=== PATIENT | female | born 1945 | race Caucasian/White ===

== ENCOUNTER → 2016-07-03 17:40 | Outpatient (CLI) | payer MEDICARE ==
[2012-01-12 10:42] VITALS: BMI 29.2
== END | disposition home or self-care (01) ==
LOC: D.MAMMO 06-07 16:00
DX: Z12.31 Encounter for screening mammogram for malignant neoplasm of breast (principal)

== ENCOUNTER → 2016-07-27 07:52 | Outpatient (CLI) | payer MEDICARE, OTHER ==
[2012-01-12 10:42] VITALS: BMI 29.2
== END | disposition home or self-care (01) ==
LOC: D.US 07-18 15:00
DX: R92.8 Other abnormal and inconclusive findings on diagnostic imaging of breast (principal)

== ENCOUNTER → 2016-11-16 10:09 | Outpatient (CLI) | payer MEDICARE, OTHER ==
[2012-01-12 10:42] VITALS: BMI 29.2
== END | disposition home or self-care (01) ==
LOC: D.US 10:00
DX: R92.8 Other abnormal and inconclusive findings on diagnostic imaging of breast (principal)

== ENCOUNTER → 2017-04-08 08:32 | Outpatient (CLI) | payer MEDICARE, OTHER ==
[2012-01-12 10:42] VITALS: BMI 29.2
== END | disposition home or self-care (01) ==
LOC: D.RAD 08:30
DX: R13.10 Dysphagia, unspecified (principal)

== ENCOUNTER → 2017-07-10 13:39 | Outpatient (CLI) | payer MEDICARE, OTHER ==
[2012-01-12 10:42] VITALS: BMI 29.2
== END | disposition home or self-care (01) ==
LOC: D.MAMMO 13:39
DX: Z12.31 Encounter for screening mammogram for malignant neoplasm of breast (principal)

== ENCOUNTER → 2018-08-12 23:59 | Outpatient (CLI) | payer MEDICARE, OTHER ==
[2012-01-12 10:42] VITALS: BMI 29.2
== END | disposition home or self-care (01) ==
LOC: D.MAMMO 15:30
PROVIDERS: ATTEND Family Medicine Adult Medicine
DX: Z12.31 Encounter for screening mammogram for malignant neoplasm of breast (principal)

== ENCOUNTER → 2019-07-06 10:19 | Outpatient (CLI) | payer MEDICARE, OTHER ==
[2012-01-12 10:42] VITALS: BMI 29.2
== END | disposition home or self-care (01) ==
LOC: D.HCCARDIO 10:19
PROVIDERS: ATTEND Internal Medicine Cardiovascular Disease
DX: I25.10 Atherosclerotic heart disease of native coronary artery without angina pectoris (principal)

== ENCOUNTER 2019-07-13 18:15 | Inpatient (IN) | payer MEDICARE, OTHER ==
[~2019-07-13] VITALS: Ht 170.2 cm; Wt 73.6 kg
--- NOTE | ~2019-07-13 | HEMODYNAMI ---
PATIENT:HEATHER KELLY MEDICAL RECORD: [id number] : 45 LOCATION:[facility] D.2121 ADMISSION DATE: 07/13/19 Generatedon:07/17/20198:31 Patient name: HEATHER KELLY Patient #: [id number] SSN: [id number] : 1945 Date of study: 07/17/2019 Page: Of Hemodynamic Procedure Report Patient Data Patient Demographics Procedure consent was obtained First Name: HEATHER Gender: Female Last Name: LETICIA : 1945 Patient #: [id number] Age: 74 year(s) Race: SSN: [id number] Additional ID: [id number] Contact details Address: [address] [place] [address] State: [place] City: [place] Zip code: [address] Past Medical History Allergies Allergen Reaction Date Comments Reported Other allergy 07/17/2019 ASPIRIN, CODEINE, IRON, MORPHINE, LEVINFLOXIN Admission Admission Data Admission Date: 07/13/2019 Admission Time: 20:42 Arrival Date: 07/17/2019 Arrival Time: 0:00 Admit Source: Other Insurance Payor: Medicare Room #: D.2121 [facility] #: [id number] Height (in.): 6700 BSA: 51.48 (m2) Height (cm.): 28804 BMI: 0 (kg/m2) Weight (lbs.): 157.41 Weight (kg.): 71.4 Lab Results Lab Result Date: 07/17/2019 Lab Result Time: 0:00 Biochemistry Name Units Result Min Max BUN mg/dl 14 --(--*-)-- 7 18 Creatinine mg/dl 0.9 --(-*--)-- 0.6 1.3 eGFR ml/min 64.13458 *-(----)-- 90 120 NONAFRICAN CBC Name Units Result Min Max Hematocrit % 34.9 *-(----)-- 42 54 Hemoglobin g/dl 11.4 *-(----)-- 13.5 17.5 Procedure Procedure Types Cath Procedure Diagnostic Procedure LHC Coronaries w/Grafts Sedation Charges Moderate Sedation up to 30 minutes PCI Procedure Coronary Stent Coronary Stent Initial Hemochron ACT Test Procedure Description Procedure Date Procedure Date: 07/17/2019 Procedure Start Time: 7:51 Procedure End Time: 8:29 Procedure Staff Name Function Bruce Vela MD Performing Physician Lissy Demarco RT Monitor Adriana Messina RT Scrub Bridget Nagel RN Nurse Indication Chest pain Procedure Data Cath Procedure Fluoroscopy Diagnostic fluoroscopy Total fluoroscopy Time: 7.8 time: 7.8 min min Diagnostic fluoroscopy Total fluoroscopy dose: 850 dose: 850 mGy mGy Contrast Material Contrast Material Type Amount (ml) Isovue 300 136 Entry Location Entry Primary Successful Side Size Upsize Upsize Entry Closure Succes sful Closure Location (Fr) 1 (Fr) 2 (Fr) Remarks Device Remarks Femoral Right 5 Fr 6 Fr Exoseal artery Short Estimated blood loss: 10 ml Diagnostic catheters Device Type Used For End Catheter Placement MULTIPACK JL 4.0 5Fr Left Coronary catheter Angiography MULTIPACK 3DRC 5Fr Right Coronary catheter Angiography DIAGNOSTIC IM 5Fr Procedure catheter ([id number]) Procedure Complications No complications Procedure Medications Medication Administration Route Dosage Oxygen etCO2 Nasal cannula 2 l/min Lidocaine 2% added to field 20 Heparin Flush Bag added to field 2 bags (1000units/500ml NS) 0.9% NaCl I.V. 100 ml/hr Zofran I.V. 4 mg Versed I.V. 1 mg Fentanyl I.V. 50 mcg Versed I.V. 1 mg Fentanyl I.V. 50 mcg Heparin Bolus I.V. 7000 units Versed I.V. 1 mg Plavix P.O. 600 mg Hemodynamics Rest BSA: 51.48 (m2) HGB: 11.4 (g/dl) O2 Consumption: Estimated: 4918.92 (ml/min) O2 Consumption indexed: Estimated:95.55 (ml/min/m) Heart Rate: 81 (bpm) Snapshots Pre Cath Intra NCS Post Cath Vital Signs Time Heart Resp SPO2 etCO2 NIBP (mmHg) Rhythm Pain Status Sedation Rate (ipm) (%) (mmHg) Level (bpm) 7:44:18 81 18 93 0 157/94(125) NSR 10 (11) , 10(A) Unimaginable unspeakable 7:48:34 83 15 92 10.5 147/86(112) NSR 10 (11) , 10(A) Unimaginable unspeakable 7:52:46 101 17 93 15 163/106(134) NSR 0 (11) , No 10(A) pain 7:57:00 105 15 94 19.5 174/101(130) NSR 0 (11) , No 9(A) pain 8:01:10 98 27 94 19.5 141/95(117) NSR 0 (11) , No 9(A) pain 8:05:20 101 21 94 28.6 144/96(120) NSR 0 (11) , No 9(A) pain 8:09:46 67 15 92 21 86/50(67) NSR 0 (11) , No 10(A) pain 8:14:43 67 22 93 18.8 108/60(83) NSR 0 (11) , No 9(A) pain 8:19:30 104 26 93 15.8 128/80(106) NSR 0 (11) , No 9(A) pain 8:23:38 101 30 94 21.8 139/87(120) NSR 0 (11) , No 10(A) pain 8:27:48 98 36 90 11.2 139/88(108) NSR 0 (11) , No 10(A) pain Medications Time Medication Route Dose Verified Delivered Reason Notes Effectiveness by by 7:43:26 Oxygen etCO2 2 Bruce Buffie used for Nasal l/min Dane Nagel RN procedure cannula 7:43:38 Lidocaine 2% added 20ml Bruce Bruce for local to vial Dane Vela MD anesthetic field 7:43:46 Heparin Flush added 2 Bruce Bruce used for Bag to bags Dane Vela MD procedure (1000units/500ml field NS) 7:43:54 0.9% NaCl I.V. 100 Bruce Buffie Per physician ml/hr Dane Nagel RN 7:44:04 Zofran I.V. 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 7:48:13 Versed I.V. 1 mg Bruce Buffie for sedation Dane Nagel RN 7:48:20 Fentanyl I.V. 50 Bruce Buffie for sedation mcg Dane Nagel RN 7:51:42 Versed I.V. 1 mg Bruce Buffie for sedation Dane Nagel RN 7:51:45 Fentanyl I.V. 50 Bruce Buffie for sedation mcg Dane Nagel RN 8:06:50 Heparin Bolus I.V. 7000 Bruce Buffie for verifi ed units Dane Nagel RN anticoagulation with dr vela 8:13:42 Versed I.V. 1 mg Bruce Buffie for sedation Dane Nagel RN 8:25:59 Plavix P.O. 600 Bruce Buffie for mg Dane Nagel RN antiplatelet therapy Procedure Log Time Note 7:13:38 Informed consent obtained and on chart 7:15:32 Stress Test: yes; abnormal anterior wall 7:15:37 Risk of Mortality: 0.1 7:15:40 Risk of blood transfusion: 1.2 7:15:44 Risk of JERARDO: 1.8 7:15:47 Alarms reviewed by R. N. 7:15:48 Sharps counted by scrub and verified by R.N. 7:15:56 Diagnostic Cath Status : Urgent 7:16:20 Indication : Chest pain 7:16:32 Procedure Status Urgent Heart Cath (IP). 7:16:35 Bridget Nagel RN sent for patient. Start room use. 7:16:44 Time tracking: Regular hours (M-F 7:00 - 5:00) 7:16:49 Plan of Care:Hemodynamics will remain stable., Cardiac rhythm will remain stable., Comfort level will be maintained., Respiratory function will remain adequate., Patient/ family verbilizes understanding of procedure., Procedure tolerated without complication., Recovers from procedure without complications.. 7:16:56 Admit Source: Other 7:17:10 H&P Date Dictated: 07/13/2019 Within 30 days and on chart.. 7:17:11 Pre-procedure instructions explained to patient. 7:17:12 Pre-op teaching completed and patient verbalized understanding. 7:17:17 Patient NPO since Midnight. 7:17:56 Patient allergic to Other allergyASPIRIN, CODEINE, IRON, MORPHINE, LEVINFLOXIN 7:18:01 Is the patient allergic to Iodine/contrast media? No. 7:18:39 Lab Result : BUN 14 mg/dl 7:18:39 Lab Result : Creatinine 0.9 mg/dl 7:18:39 Lab Result : eGFR NONAFRICAN 64.31829 ml/min 7:18:39 Lab Result : Hemoglobin 11.4 g/dl 7:18:39 Lab Result : Hematocrit 34.9 % 7:18:46 Is patient on blood thinner?Yes 7:18:51 ACC The patient was administered the following blood thiners within the last 24 hours: Coumadin 7:18:59 Patient diabetic? No. 7:19:01 If diabetic: On Metformin? N/A 7:19:05 Was the patient premedicated? Yes 7:21:53 Arrival Date: 07/17/2019 12:00:00 AM 7:21:57 Patient Height : 6700 inches 7:22:01 Patient Weight : 157.41 lbs 7:22:16 Insurance Payor : Medicare 7:38:56 Patient received from Med II to CCL 1 Alert and oriented. Tansferred to table in Supine position. 7:43:17 Vital chart was started 7:43:26 Oxygen 2 l/min etCO2 Nasal cannula was administered by Bridget Nagel RN; used for procedure; Verbal order read back and verified. 7:43:38 Lidocaine 2% 20ml vial added to field was administered by Bruce Vela MD; for local anesthetic; Verbal order read back and verified. 7:43:46 Heparin Flush Bag (1000units/500ml NS) 2 bags added to field was administered by Bruce Vela MD; used for procedure; Verbal order read back and verified. 7:43:54 0.9% NaCl 100 ml/hr I.V. was administered by Bridget Nagel RN; Per physician; Verbal order read back and verified. 7:44:04 Zofran 4 mg I.V. 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 Verbal order read back and verified. 7:44:18 Warm blankets applied, and chad hugger turned on for patient comfort. 7:44:19 Correct patient and procedure confirmed by team. 7:44:20 ECG and BP/O2 sat monitors applied to patient. 7:44:21 Baseline sample Acquired. 7:44:29 Rhythm: sinus rhythm 7:44:34 Full Disclosure recording started 7:44:36 7:45:25 ----Pre-sedation anethsthesia assessment.---- 7:45:38 Previous problem with sedation/anesthesia? Yes DAYS TO RECOVER 7:45:42 Snore? Yes 7:45:44 Sleep apnea? No 7:45:47 Deviated septum? No 7:45:49 Opens mouth fully? Yes 7:45:52 Sticks out tongue? Yes 7:45:56 Airway obstruction? No ? 7:46:04 Dentures? No ? 7:46:18 Pre procedure: right dorsailis pedis pulse 2+ Normal; easily identifiable; not easily obliterated 7:46:29 Patient pain scale 10/10 CHEST. 7:47:32 IV [facility] with a 22 gauge IV catheter with 0.9% NaCl at KVO. 7:47:39 Lab results completed and on chart. 7:47:44 Right groin area was prepped with chlora-prep and draped in sterile fashion 7:47:48 Physician arrived 7:47:49 --------ALL STOP TIME OUT------ 7:47:49 Final Timeout: patient, procedure, and site verified with staff and physician. All members of the team are in agreement. 7:47:52 Right groin site verified by team. 7:47:59 Fire Safety Assessment: A--An alcohol-based skin anteseptic being used preoperatively., C--Open oxygen or nitrous oxide is being used., D--An ESU, laser, or fiber-optic light is being used. 7:48:08 Physical assessment completed. ASA score P 2 - A patient with mild systemic disease as per Bruce Vela MD. 7:48:13 Versed 1 mg I.V. was administered by Bridget Nagel RN; for sedation; Verbal order read back and verified. 7:48:16 2) 60-89 Mildly reduced kidney function, and other findings (as for stage 1) point to kidney disease. 7:48:20 Fentanyl 50 mcg I.V. was administered by Bridget Nagel RN; for sedation; Verbal order read back and verified. 7:48:23 Maximum allowable contrast dose (3.7 X eGFR X 0.75)180 ml. 7:48:30 Sedation plan: IV Moderate Sedation Medication:Versed, Fentanyl 7:48:36 Use device set Femoral Dx 7:48:38 ACIST Syringe (49750) opened to sterile field. 7:48:39 Bag Decanter (2002S) opened to sterile field. 7:48:40 Medline Cath Pack ([id number]) opened to sterile field. 7:48:41 ACIST Hand Control (93293) opened to sterile field. 7:48:42 ACIST Manifold (79374) opened to sterile field. 7:48:43 DIAGNOSTIC Multipack 5Fr catheter set (HX1822) opened to sterile field. 7:48:44 Tegaderm 4 x 4 (1626W) opened to sterile field. 7:48:46 SHEATH 5FR [place] (DSL486) opened to sterile field. 7:48:47 EMERALD Guide Wire (274-367) opened to sterile field. 7:48:56 Procedure started. 7:51:00 Local anesthetic to right femoral artery with Lidocaine 2% by Bruce Vela MD.INITIAL ACCESS ONLY 7:51:16 A 5 Fr sheath was inserted into the Right Femoral artery 7:51:42 Versed 1 mg I.V. was administered by Bridget Nagel RN; for sedation; Verbal order read back and verified. 7:51:45 Fentanyl 50 mcg I.V. was administered by Bridget Nagel RN; for sedation; Verbal order read back and verified. 7:52:04 A MULTIPACK JL 4.0 5Fr catheter was advanced over the wire and used for Left Coronary Angiography. 7:52:58 LCA angiography performed. 7:53:03 Injector settings: Ml/sec: 3, Volume: 6, 7:54:29 Zero performed for pressure channel P1 7:54:42 Zero performed for pressure channel P1 7:54:51 Zero performed for pressure channel P1 7:55:01 Catheter removed. 7:55:15 A MULTIPACK 3DRC 5Fr catheter was advanced over the wire and used for Right Coronary Angiography. 7:55:56 RCA angiography performed. 7:56:27 Injector settings: Ml/sec: 3, Volume: 6, 7:56:31 SVG TO RIGHT CLOSED. 7:57:27 SVG OCCLUDED. 7:57:37 Catheter removed. 7:58:39 A DIAGNOSTIC IM 5Fr catheter (002922C) was advanced over the wire and used for Procedure. 7:59:56 SCHMITT to LAD angiography performed. 8:02:29 Catheter removed. 8:02:57 Use device set VELA PCI 8:04:09 Proceeding to intervention. 8:04:22 INFLATOR Merit BasixCompak (DP4389) opened to sterile field. 8:04:35 SHEATH 6FR [place] (REX115) opened to sterile field. 8:05:18 GUIDE 6FR XBLAD 3.5 SH catheter ([id number]) opened to sterile field. 8:06:04 Sheath upsized to a 6 Fr Short. 8:06:25 6 Fr XBLAD3.5 SH guide catheter was inserted over the wire 8:06:35 BMW 300cm [place] 2 J wire ([id number]) opened to sterile field. 8:06:45 BMW WIRE wire advanced. 8:06:50 Heparin Bolus 7000 units I.V. was administered by Bridget Nagel RN; for anticoagulation; verified with dr vela Verbal order read back and verified. 8:08:14 Pre PCI Site: [place] mCirc has 90% stenosis. 8:08:42 ACC Pre-intervention KAY Flow is 3. 8:08:47 Wire advanced across lesion. 8:10:42 Inflate balloon Inflation number: 2 A EMERGE OTW 2.5 x 15 balloon ([id number]) was prepped and advanced across the Mid CX , then inflated to 12 MCKAY for 0:00 (min:sec) . 8:11:28 Balloon removed over the wire. 8:13:42 Versed 1 mg I.V. was administered by Bridget Nagel RN; for sedation; Verbal order read back and verified. 8:15:40 Place stent Inflation Number: 1 A COBRA RX 2.5 X 18 Stent was prepped and advanced across the Mid CX . The stent was deployed at 16 MCKAY for 0:00 (min:sec) . 8:16:35 Stent catheter was removed intact over wire. 8:18:48 Wire removed. 8:18:50 Guide catheter removed. 8:19:07 Post PCI Site: [place] mCirc has 0% stenosis. 8:19:47 ACC Post-intervention KAY Flow is 3. 8:19:55 EXOSEAL 6Fr (EX600) opened to sterile field. 8:20:06 ACT drawn and resulted at ? seconds. (normal therapeutic range 180-240 seconds). 8:20:41 Sheath removed intact; hemostasis achieved with Exoseal to the Right Femoral artery. 8:20:48 Procedure ended.(Physican Out) 8:20:56 Contrast amount:Isovue 300 136ml. 8:21:10 Maximum allowable dose exceeded? No. 8:21:46 Fluoroscopy time 07.80 minutes. 8:21:57 Flurop Dose total: 850 8:21:57 Fluoroscopy dose: 850 mGy 8:22:09 Dose Area Product 45389 mGy/cm. 8:22:11 Sharps counted by scrub and verified by R.N. 8:22:16 Insertion/operative site no bleeding no hematoma. 8:22:23 Post-op/insertion site Right Femoral artery dressed using a 4 x 4 and Tegaderm. 8:22:28 Post right femoral artery:stable 8:22:32 Post Procedure Pulses reassessed and unchanged 8:22:37 Post-procedure physical assessment completed. ASA score P 2 - A patient with mild systemic disease as per Bruce Vela MD. 8:23:08 Post procedure rhythm: sinus tachycardia 8:24:13 Estimated blood loss: 10 ml 8:24:15 Post procedure instruction explained to patient.Patient verbalizes understanding. 8:24:17 Patient needs reinforcement of post procedure teaching. 8:25:34 Procedure type changed to Cath procedure, Diagnostic procedure, LHC, Coronaries w/Grafts, Sedation Charges, Moderate Sedation up to 30 minutes, PCI procedure, Coronary Stent, Coronary Stent Initial, Hemochron ACT Test 8:25:36 Procedure and supply charges have been captured, reviewed, submitted and are correct. 8:25:59 Plavix 600 mg P.O. was administered by Bridget Ngael RN; for antiplatelet therapy; Verbal order read back and verified. 8:27:08 ACT drawn and resulted at 327 seconds. (normal therapeutic range 180-240 seconds). 8:29:19 Procedure Complication : No complications 8:29:22 Vital chart was stopped 8:29:25 [facility] Findings: MVD- PCI performed (see procedure note) 8:29:29 Operative report dictated upon procedure completion. 8:29:30 See physician's report for complete and final results. 8:29:33 Report given to [facility] II. 8:29:38 Patient transfered to [facility] with Bed. 8:29:41 Procedure ended. 8:29:41 Full Disclosure recording stopped 8:29:45 End room use (Document Last) Intervention Summary Intervention Notes Time ActionType Lesion and Equipment Action# Pressure Duration Attributes Used 8:10:42 Inflate Mid CX EMERGE OTW 2 12 00:00 balloon 2.5 x 15 balloon ([id number]) 8:15:40 Place stent Mid CX COBRA RX 2.5 1 16 00:00 X 18 Stent Device Usage Item Name Manufacture Quantity Catalog Number [facility] Minimal Lot# / Charge Number Stock Stock Serial# Code ACIST Syringe Acist 1 49962 370082 004283 530405 20 (03791) Medical Systems Inc Bag Decanter Microtek 1 2001S 879806 99201 599891 5 (2001S) Medical Inc. Medline Cath Medline 1 [id number] 794664 13922 621834 5 Pack ([id number]) ACIST Hand Acist 1 75347 503208 344494 659548 5 Control Medical (48682) Systems Inc ACIST Manifold Acist 1 52494 466079 089244 708980 5 (52427) Medical Systems Inc DIAGNOSTIC Cardinal 1 IV2702 819406 61378 413719 30 Multipack 5Fr [place] catheter set (AT9538) Tegaderm 4 x 4 3M 1 1626W 440826 081557 054930 5 (1626W) SHEATH 5FR Terumo 1 PCB992 020073 861835 376221 5 [place] (POS972) EMERALD Guide Cardinal 1 502-455 278489 987744 941989 5 Wire (502-455) Health MULTIPACK JL Cardinal 1 464000 5 4.0 5Fr Health catheter MULTIPACK 3DRC Cardinal 1 425221 5 5Fr catheter Health DIAGNOSTIC IM Cardinal 1 [id number] 120633 541195 819299 5 5Fr catheter [place] (458563Y) INFLATOR Merit Merit 1 HO7885 849159 492405 685930 15 BasixSan [facility] HospitalElectric Objects Medical (HO3398) SHEATH 6FR Terumo 1 NTE895 807472 295210 133833 40 [place] (HAW849) GUIDE 6FR Cardinal 1 64917779 414665 846876 008393 3 XBLAD 3.5 SH Health catheter (61991032) BMW 300cm [place] 1 [id number] 366482 782967 586452 5 [place] 2 J Vascular wire (7567159D) EMERGE OTW 2.5 [place] 1 [id number] 312388 106131 232120 5 [id number] x 15 balloon Scientific ([id number]) COBRA RX 2.5 X Celonova 1 145-76-77686 005746 [id number] 661869 83 3 [id number] 18 stent Biosciences ([id number]) EXOSEAL 6Fr Cardinal 1 EX600 830752 617487 500556 10 (EX600) Health Signature Audit [place] Stage Time Signature Unsigned Intra-Procedure 07/17/2019 Lissy 8:30:27 AM Dav RT(R) (CV) Intra-Procedure 07/17/2019 Bridget Nagel RN 8:30:58 AM Intra-Procedure 07/17/2019 Bruce Vela MD 8:31:45 AM [place] [address] [id number] [place] [id number]
[2019-07-13 19:16] LABS: BASOPHILS 0.4 % (0-2); EOSINOPHILS 2.7 % (0-7); IMMATURE GRANULOCYTES 0.3 % (0-5); LYMPHOCYTES 32.9 % (15-50); MCH 31.1 pg (26.0-34.0); MCHC 34.1 g/dL (31.0-37.0); MCV 91.1 fL (80.0-100.0); MEAN PLATELET VOLUME 11.9 fL (7.4-10.4); MONOCYTES 8.4 % (2-11); NEUTROPHILS 55.3 % (40-80); PLATELET COUNT 286 10x3/uL (130-400); RBC 4.83 10x6/uL (4.00-5.40); RDW 13.4 % (11.5-14.5); WBC 9.6 10x3/uL (4.8-10.8)
[2019-07-13 19:26] VITALS: BP 184/76
[2019-07-13 19:28] LABS: CALC OSMOLALITY 279 mosm/kg (275-300); CALCIUM 8.9 mg/dL (8.5-10.1); CARBON DIOXIDE 28.3 mmol/L (21.0-32.0); CHLORIDE - SERUM 101 mmol/L (98-107); CREATININE - SERUM 1.1 mg/dL (0.6-1.3); GLUCOSE 93 mg/dL (74-106); POTASSIUM - SERUM 3.5 mmol/L (3.5-5.1); SODIUM 139 mmol/L (136-145); UREA NITROGEN 17 mg/dL (7-18); eGFR NON AFRICAN AMERICAN 51 mL/min (90-120)
[2019-07-13 19:30] LABS: APTT 52.8 SECONDS (22.8-39.4); INR 2.8 (0.85-1.17)
[2019-07-13 19:44] LABS: ALBUMIN 4.2 g/dL (3.4-5.0); ALKALINE PHOSPHATASE 110 U/L (30-120); ALT (SGPT) 23 U/L (10-68); BILIRUBIN - TOTAL 0.38 mg/dL (0.2-1.3); CKMB 2.4 U/L (0.0-3.6); CREATINE KINASE 132 UL (21-215); MAGNESIUM - SERUM 1.8 mg/dL (1.8-2.4); PROTEIN - SERUM 7.9 g/dL (6.4-8.2); TROPONIN-I 0.056 ng/mL (0.000-0.060)
[2019-07-13 20:20] VITALS: BP 178/56
--- NOTE | 2019-07-13 21:58 | NUR ---
REPORT CALLED TO [facility]OLO ON MED II. PATIENT WILL TRANSFER WITH [facility] INFUSING
--- NOTE | 2019-07-13 22:15 | NUR ---
RECEIVED FROM ER, PT IS A&O X4, HISTORY AND MEDS REVIEWED, DENIES ANY NEEDS, BED IS LOW, SRX2, CALL LIGHT IN REACH, WILL CONTINUE PLAN OF CARE
[2019-07-13] MEDS ORDERED: NITROQUICK0.4 MG SL (22:16)
[2019-07-13] MEDS ORDERED: COUMADIN3 MG PO (22:17)
[2019-07-13] MEDS ORDERED: COUMADIN2 MG PO (22:18)
[2019-07-14] VITALS (7 sets, daily range): BP systolic 121–144; BP diastolic 59–74; BMI 23.2
[2019-07-14 02:47] LABS: BASOPHILS 0.3 % (0-2); EOSINOPHILS 3.3 % (0-7); HEMATOCRIT 40.9 % (36.0-48.0); HEMOGLOBIN 13.3 g/dL (12-16); IMMATURE GRANULOCYTES 0.3 % (0-5); MCH 30.1 pg (26.0-34.0); MCHC 32.5 g/dL (31.0-37.0); MCV 92.5 fL (80.0-100.0); MEAN PLATELET VOLUME 11.5 fL (7.4-10.4); MONOCYTES 7.2 % (2-11); NEUTROPHILS 62.9 % (40-80); PLATELET COUNT 248 10x3/uL (130-400); RBC 4.42 10x6/uL (4.00-5.40); RDW 13.4 % (11.5-14.5); WBC 9.5 10x3/uL (4.8-10.8)
[2019-07-14 03:23] LABS: ALBUMIN 3.5 g/dL (3.4-5.0); ALKALINE PHOSPHATASE 82 U/L (30-120); ALT (SGPT) 18 U/L (10-68); BILIRUBIN - TOTAL 0.55 mg/dL (0.2-1.3); CALC OSMOLALITY 285 mosm/kg (275-300); CALCIUM 8.4 mg/dL (8.5-10.1); CARBON DIOXIDE 29.8 mmol/L (21.0-32.0); CHLORIDE - SERUM 106 mmol/L (98-107); CKMB 6.9 U/L (0.0-3.6); CREATINE KINASE 126 UL (21-215); CREATININE - SERUM 0.9 mg/dL (0.6-1.3); GLUCOSE 95 mg/dL (74-106); MAGNESIUM - SERUM 1.8 mg/dL (1.8-2.4); PHOSPHOROUS 3.6 mg/dL (2.5-4.9); PRO BNP 3043 pg/mL (0-125); SODIUM 143 mmol/L (136-145); UREA NITROGEN 16 mg/dL (7-18); eGFR NON AFRICAN AMERICAN 65 mL/min (90-120)
[2019-07-14 03:27] LABS: POTASSIUM - SERUM 4.1 mmol/L (3.5-5.1)
[2019-07-14 03:30] LABS: TROPONIN-I 0.663 ng/mL (0.000-0.060)
[2019-07-14 03:52] LABS: APTT 60.5 SECONDS (22.8-39.4); INR 3.2 (0.85-1.17); PROTIME 32.1 SECONDS (11.6-15.0)
[2019-07-14 04:28] LABS: APPEARANCE CLEAR (CLEAR); BILIRUBIN NEGATIVE (NEGATIVE); COLOR YELLOW (YELLOW); GLUCOSE NEGATIVE (NEGATIVE); KETONE NEGATIVE (NEGATIVE); NITRITE NEGATIVE (NEGATIVE); PROTEIN NEGATIVE (NEGATIVE); UROBILINOGEN NORMAL (NORMAL)
[2019-07-14 04:30] LABS: BACTERIA FEW /hpf (NEGATIVE); EPITHELIAL CELLS 0-5 /hpf (0-5); RED CELLS - URINE 0-5 /hpf (0-5); WHITE CELLS - URINE 0-5 /hpf (NEGATIVE)
--- NOTE | 2019-07-14 08:28 | NUR ---
AM MEDS GIVEN AT THIS TIME. PT RESTING COMFORTABLY IN BED, DENIES ANY NEEDS AT THIS TIME. CALL LIGHT REACH, NAD NOTED, WILL CONTINUE TO MONITOR.
[2019-07-14 08:47] LABS: CKMB 5.5 U/L (0.0-3.6); CREATINE KINASE 116 UL (21-215)
[2019-07-14 08:52] LABS: TROPONIN-I 0.724 ng/mL (0.000-0.060)
--- NOTE | 2019-07-14 10:08 | NUR ---
NORCO GIVEN FOR PAIN LEVEL OF 6/10.
--- NOTE | 2019-07-14 14:35 | NUR ---
PT RESTING COMFORTABLY IN BED, DENIES ANY NEEDS AT THIS TIME. CALL LIGHT IN REACH, NAD NOTED, WILL CONTINUE TO MONITOR.
[2019-07-14 15:08] LABS: CREATINE KINASE 106 UL (21-215)
[2019-07-14 17:23] LABS: CKMB 1.6 U/L (0.0-3.6); CREATINE KINASE 33 UL (21-215)
[2019-07-14 17:28] LABS: TROPONIN-I 0.156 ng/mL (0.000-0.060)
--- NOTE | 2019-07-14 19:20 | NUR ---
ASSESSMENT COMPLETE, PT A&O. RESPERATIONS EVEN ON RA. IV TO LEFT ARM SL, SITE CLEAN AND DRY. PT DENIES PAIN OR NEEDS AT THIS TIME, BED LOW, CL IN REACH. FAMILY AT BED SIDE.
--- NOTE | 2019-07-14 20:44 | NUR ---
HS MEDS GIVEN WITH FRESH ICE WATER. PT DENIES PAIN OR NEEDS. HEATER/AIR UNIT ADJUSTED AT PTS REQUEST.
[2019-07-14 23:47] LABS: CKMB 2.1 U/L (0.0-3.6); CREATINE KINASE 107 UL (21-215); TROPONIN-I 0.334 ng/mL (0.000-0.060)
[2019-07-15 00:21] VITALS: BP 180/79
--- NOTE | 2019-07-15 01:14 | NUR ---
I have reviewed this patient and I concur with the Shift Assessment completed by the Licensed Practical Nurse today this shift.
--- NOTE | 2019-07-15 02:00 | NUR ---
RESTING WITH EYES CLOSED, RESPERATIONS EVEN, NO S/S DISTRESS NOTED.
[2019-07-15 04:00] VITALS: BP 154/66
[2019-07-15 04:59] LABS: BASOPHILS 0.2 % (0-2); EOSINOPHILS 3.3 % (0-7); HEMATOCRIT 40.5 % (36.0-48.0); HEMOGLOBIN 13.3 g/dL (12-16); IMMATURE GRANULOCYTES 0.3 % (0-5); LYMPHOCYTES 32.4 % (15-50); MCH 30.4 pg (26.0-34.0); MCHC 32.8 g/dL (31.0-37.0); MCV 92.5 fL (80.0-100.0); MEAN PLATELET VOLUME 11.9 fL (7.4-10.4); MONOCYTES 8.1 % (2-11); NEUTROPHILS 55.7 % (40-80); PLATELET COUNT 264 10x3/uL (130-400); RBC 4.38 10x6/uL (4.00-5.40); RDW 13.4 % (11.5-14.5); WBC 9.3 10x3/uL (4.8-10.8)
[2019-07-15 05:28] LABS: INR 2.96 (0.85-1.17); PROTIME 30.3 SECONDS (11.6-15.0)
[2019-07-15 05:47] LABS: CALC OSMOLALITY 278 mosm/kg (275-300); CALCIUM 8.1 mg/dL (8.5-10.1); CARBON DIOXIDE 27.4 mmol/L (21.0-32.0); CHLORIDE - SERUM 105 mmol/L (98-107); CKMB 2.2 U/L (0.0-3.6); CREATINE KINASE 96 UL (21-215); GLUCOSE 104 mg/dL (74-106); POTASSIUM - SERUM 4.2 mmol/L (3.5-5.1); SODIUM 139 mmol/L (136-145); UREA NITROGEN 15 mg/dL (7-18); eGFR NON AFRICAN AMERICAN 57 mL/min (90-120)
[2019-07-15 05:51] LABS: TROPONIN-I 0.235 ng/mL (0.000-0.060)
[2019-07-15 08:00] VITALS: BP 150/72
--- NOTE | 2019-07-15 08:31 | NUR ---
AM MEDS GIVEN AT THIS TIME. PT RESTING COMFORTABLY IN BED. A/O X4, RESP EVEN AND NONLABORED ON RA. PT DENIES ANY PAIN AT THIS TIME. LT AC IV SL. CALL LIGHT IN REACH, NAD NOTED,W ILL CONTINUE TO MONITOR.
[2019-07-15 12:00] VITALS: BP 162/62
--- NOTE | 2019-07-15 12:01 | NUR ---
PT RESTING COMFORTABLY IN BED, DENIES ANY NEEDS AT THIS TIME. CALL LIGHT IN REACH, FAMILY AT BEDSIDE, NAD NOTED, WILL CONTINUE TO MONITOR.
--- NOTE | 2019-07-15 15:32 | NUR ---
PER DR. GIRARD, GIVE ONE TIME DOSE OF 5MG PO OF VITAMIN K.
--- NOTE | 2019-07-15 15:47 | NUR ---
PT C/O OF CHEST PAIN, NO CHANGES ON HEART MONITOR. PT RUNNING SR WITH RATE OF 82. 1 NITRO GIVEN AT THIS TIME. CASHIER IN ROOM TALKING TO PT.
--- NOTE | 2019-07-15 15:59 | NUR ---
CHEST PAIN RELIEVED BY 1 NITRO.
[2019-07-15 16:00] VITALS: BP 168/76
--- NOTE | 2019-07-15 16:15 | MORECARE ---
CASE MANAGEMENT DISCHARGE SUMMARY PATIENT: HEATHER KELLY UNIT: [id number] ADM DATE: 07/13/19 AGE: 74 : 45 SEX: F ROOM/BED: D.2121 AUTHOR: JESSICA,DOC PHYSICIAN: REFERRING PHYSICIAN: CEDRICK GIRARD MD DATE OF SERVICE: 07/15/19 Discharge Plan Patient Name: HEATHER KELLY Facility: [facility]:[place] : 1945 Planned Disposition: Home Anticipated Discharge Date: Discharge Date: Expected LOS: Initial Reviewer: [email or web address] Initial Review Date: 07/15/2019 Generated: 07/15/19 5:14 pm Comments DCP- Discharge Planning Updated by [email or web address]: Danny Andrade on 07/15/19 3:[address] Patient Name: HEATHER KELLY Admission Status: ER Accout number: [id number] Admission Date: 07-13-2019 : 1945 Admission Diagnosis: Attending: CEDRICK GIRARD Current LOS: 2 Anticipated DC Date: Planned Disposition: Home Primary Insurance: MEDICARE A & B Discharge Planning Comments: CM MET WITH PT IN ROOM TO DISCUSS DISCHARGE PLANNING AND NEEDS. PT REPORTS LIVING AT HOME INDEPENDENTLY WITH HEHER SISTER IN LAW. 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 PT HAS NO MEDICAL EQUIPMENT AND NO OUTSIDE SERVICES ASSISTING IN THE HOME. CM DISCUSSED AVAILABILITY OF HOME HEALTH, REHAB SERVICES AND MEDICAL EQUIPMENT. PT DENIES DISCHARGE NEEDS, REPORTS HER FAMILY OR FRIEND WILL PICK HER UP FOR DISCHARGE HOME. IMPORTANT MESSAGE FROM MEDICARE PROVIDED AND EXPLAINED. PT PLANS TO DISCHARGE HOME WITH FAMILY AND HAS NO ANTICIPATED DISCHARGE NEEDS. FAMILY OR FRIEND TO TRANSPORT AT DISCHARGE. CM TO FOLLOW AND ASSIST NEEDED. Real Estate Subagent: Danny Andrade DCPIA - Discharge Planning Initial Assessment Updated by [email or web address]: Danny Andrade on 07/15/19 4:10 pm * Is the patient Alert and Oriented? Yes * How many steps to enter\exit or inside your home? * PCP DR. NUNEZ * Pharmacy [facility] * Preadmission Environment Home with Family * ADLs Independent * Equipment None * Other Equipment NO MEDICAL EQUIPMENT PROVIDER PREFERENCE * List name and contact numbers for known caregivers / representatives who currently or will assist patient after discharge: JASE FERRERA, FRIEND, MICK CARVAJAL, SISTER IN LAW, * Verbal permission to speak to the caregivers and representatives has been obtained from the patient. N/A * Community resources currently utilized None * Please name any agencies selected above. NONE * Additional services required to return to the preadmission environment? No * Can the patient safely return to the preadmission environment? Yes * Has this patient been hospitalized within the prior 30 days at any hospital? No Coverage Notice Reviewer: [email or web address] Raj Andrade Notice Issued Date-Time: 07/15/2019 15:50 Notice Type: IM Discharge Notice Notice Delivered To: Patient Relationship to Patient: Right Of Way Clearer Name: Delivery Method: HAND - Hand Delivered Franca Days: Prior Verbal Notification: Recipient Understood Notice: Yes Recipient Signature: Yes Med Rec Note Co-signed by Attending: Coverage Notice Comment: Patient Name: HEATHER KELLY Page [phone] at 1615 All edits/amendments must be made on the electronic document DICTATION DATE: 07/15/191613 MATERIALS MGMT TECH: FIORELLA 07/15/19 161 RPT#: [id number] DC DATE: STATUS: ADM IN [facility] [address] [place] [address] END OF REPORT
[2019-07-15 20:00] VITALS: BP 131/57
[2019-07-16] VITALS: BP 141/64
[2019-07-16 04:00] VITALS: BP 177/85
--- NOTE | 2019-07-16 06:24 | NUR ---
I have reviewed this patient and I concur with the Shift Assessment completed by the Licensed Practical Nurse today this shift.
[2019-07-16 06:56] LABS: BASOPHILS 0.2 % (0-2); EOSINOPHILS 1.4 % (0-7); HEMATOCRIT 38.1 % (36.0-48.0); HEMOGLOBIN 12.5 g/dL (12-16); IMMATURE GRANULOCYTES 0.2 % (0-5); LYMPHOCYTES 10.8 % (15-50); MCH 30.3 pg (26.0-34.0); MCHC 32.8 g/dL (31.0-37.0); MCV 92.5 fL (80.0-100.0); MEAN PLATELET VOLUME 12.1 fL (7.4-10.4); MONOCYTES 7.6 % (2-11); NEUTROPHILS 79.8 % (40-80); PLATELET COUNT 244 10x3/uL (130-400); RBC 4.12 10x6/uL (4.00-5.40); RDW 13.5 % (11.5-14.5)
[2019-07-16 06:57] LABS: WBC 12.4 10x3/uL (4.8-10.8)
[2019-07-16 07:14] LABS: INR 2.16 (0.85-1.17); PROTIME 23.8 SECONDS (11.6-15.0)
[2019-07-16 07:32] LABS: ANION GAP 12.1 mmol/L (8-16); CALCIUM 8.4 mg/dL (8.5-10.1); CARBON DIOXIDE 25.8 mmol/L (21.0-32.0); CREATININE - SERUM 0.9 mg/dL (0.6-1.3); POTASSIUM - SERUM 3.9 mmol/L (3.5-5.1)
--- NOTE | 2019-07-16 07:38 | NUR ---
REPORT RECEIVED. WILL CONTINUE WITH POC. PT CURRENTLY LYING SEMI FOWLERS. CALL LIGHT W/I REACH. PT REQUESTING NITRO. PT IS AAO AND UP AD GENNY. RR EVEN AND UNLABORED ON 3L 02 L.AC PIV SALINE LOCKED. NO S/S OF DISTRESS NOTED. WILL CTM.
[2019-07-16 09:08] VITALS: BP 140/61
[2019-07-16 12:51] VITALS: BP 140/63
[2019-07-16 13:10] VITALS: Ht 170.2 cm; Wt 73.6 kg
[2019-07-16 16:40] VITALS: BP 137/59
--- NOTE | 2019-07-16 20:20 | NUR ---
EVENING ROUNDS COMPLETED. VSS, AAOX4, NO S/S OF RT DISTRESS. SPOUSE AT BEDSIDE. PT C/O CP NITRO 0.4 GIVEN. PT VOICED THANKS. PT DENIES ANY FURTHER NEEDS AT THIS TIME. WILL CPOC. CL WITHIN REACH.
[2019-07-16 20:30] VITALS: BP 125/59
[2019-07-17 00:45] VITALS: BP 115/60
[2019-07-17 04:48] VITALS: BP 119/53
[2019-07-17 06:36] LABS: BASOPHILS 0.2 % (0-2); EOSINOPHILS 2.3 % (0-7); HEMATOCRIT 34.9 % (36.0-48.0); HEMOGLOBIN 11.4 g/dL (12-16); IMMATURE GRANULOCYTES 0.2 % (0-5); MCH 30.3 pg (26.0-34.0); MCHC 32.7 g/dL (31.0-37.0); MCV 92.8 fL (80.0-100.0); MEAN PLATELET VOLUME 12.1 fL (7.4-10.4); MONOCYTES 7.3 % (2-11); PLATELET COUNT 220 10x3/uL (130-400); RBC 3.76 10x6/uL (4.00-5.40); RDW 13.4 % (11.5-14.5); WBC 10.3 10x3/uL (4.8-10.8)
[2019-07-17 07:03] LABS: INR 1.29 (0.85-1.17); PROTIME 15.9 SECONDS (11.6-15.0)
[2019-07-17 07:11] LABS: ANION GAP 14.8 mmol/L (8-16); CARBON DIOXIDE 26.3 mmol/L (21.0-32.0); CREATININE - SERUM 0.8 mg/dL (0.6-1.3); POTASSIUM - SERUM 4.1 mmol/L (3.5-5.1)
--- NOTE | 2019-07-17 07:27 | NUR ---
CONSENTS SIGNED. PREOP MEDICATIONS ADMININSTERED PER MANAGER PARK REQUEST. PT TRANSFERED TO MANAGER PARK. WILL CTM.
--- NOTE | 2019-07-17 08:53 | NUR ---
PT RETURNED FROM [facility]. RIGHT FEMORAL CATH SITE C/D/I WITH NO S/S OF HEMATOMA PRESENT. RR EVEN AND UNLABORED. NS INFUSING @100ML/HR VIA R.FOR PIV. WILL CTM.
[2019-07-17 13:18] VITALS: BP 132/86
[2019-07-17 17:12] VITALS: BP 163/83
--- NOTE | 2019-07-17 20:12 | NUR ---
REPORT RECIEVED AND INITIAL ROUNDS COMPLETED. O2 @ 3L/NC. RIGHT GROIN INCISION SITE C/D/I. PIV'S X 2, BOTH SALINE LOCKED. AT BEDSIDE. CALL LIGHT IN REACH. CPOC.
[2019-07-17 20:19] VITALS: BP 115/63
--- NOTE | 2019-07-17 20:56 | NUR ---
BEDTIME MEDS GIVEN. IV ABT UP AND INFUSING. SUPERVISED WHILE UP TO BATHROOM. GAIT STEADY. CPOC.
--- NOTE | 2019-07-17 23:30 | NUR ---
MEDICATED WITH 1 NITRO SL FOR CHEST PRESSURE THAT WAS IMPROVED WITHIN MINUTES OF TAKING THE MED. SR PER TELEMETRY.
[2019-07-18 00:21] VITALS: BP 104/63
--- NOTE | 2019-07-18 03:37 | NUR ---
RESTING IN BED WITH NO DISTRESS. CPOC.
[2019-07-18 05:29] VITALS: BP 118/59
[2019-07-18 06:24] LABS: BASOPHILS 0.2 % (0-2); EOSINOPHILS 2.1 % (0-7); HEMATOCRIT 36.1 % (36.0-48.0); HEMOGLOBIN 11.6 g/dL (12-16); IMMATURE GRANULOCYTES 0.2 % (0-5); LYMPHOCYTES 17.7 % (15-50); MCHC 32.1 g/dL (31.0-37.0); MCV 93.3 fL (80.0-100.0); MEAN PLATELET VOLUME 11.9 fL (7.4-10.4); MONOCYTES 7.8 % (2-11); PLATELET COUNT 248 10x3/uL (130-400); RBC 3.87 10x6/uL (4.00-5.40); RDW 13.3 % (11.5-14.5); WBC 10.5 10x3/uL (4.8-10.8)
[2019-07-18 06:52] LABS: CALCIUM 8.1 mg/dL (8.5-10.1); CARBON DIOXIDE 24.2 mmol/L (21.0-32.0); CREATININE - SERUM 0.9 mg/dL (0.6-1.3); POTASSIUM - SERUM 4.2 mmol/L (3.5-5.1)
[2019-07-18 06:55] LABS: INR 1.15 (0.85-1.17); PROTIME 14.6 SECONDS (11.6-15.0)
--- NOTE | 2019-07-18 07:00 | NUR ---
RECEIVED REPORT. ASSUMED CARE OF PATIENT. RESTING IN BED WITH EYES OPEN. PATIENT CONVERSING ABOUT IF SHE WILL GET TO GO HOME OR NOT, WONDERING THE STATUS OF HER INR THIS AM. DENIES NEEDS. NO DISTRESS. CALL LIGHT WITHIN REACH. SR, RATE 81 ON TELEMETRY.
[2019-07-18 09:15] VITALS: BP 105/61
--- NOTE | 2019-07-18 09:35 | NUR ---
OOB AMBULATING WITH PHYSICAL THERAPY AT THIS TIME. NO DISTRESS.
--- NOTE | 2019-07-18 12:00 | NUR ---
SITTING IN BED, PATIENT SPOUSE AT BEDSIDE. CALL LIGHT WITHIN REACH. NO DISTRESS. PATIENT DENIES ANY NEEDS.
[2019-07-18 12:06] VITALS: BP 126/62
--- NOTE | 2019-07-18 14:52 | NUR ---
SPOKE WITH ABOUT RESTARTING PATIENTS COUMADIN PER NOTE AND REVIEWED HER INR THAT WAS DRAWN THIS AM. NEW ORDERS RECEIVED FOR 10MG NOW AND IN AM. PATIENT HAS A MECHANICAL VALVE. PATIENT WILL D/C IN AM WHEN DR. JASSO MAKES HIS ROUNDS.
[2019-07-18 18:25] VITALS: BP 135/58
--- NOTE | 2019-07-18 19:47 | NUR ---
REPORT RECIEVED AND INITIAL ROUNDS COMPLETED. PT RESTING IN BED. NO DISTRESS. SR/79. LEFT A/C AND RFA PIV BOTH SALINE LOCKED. CALL LIGHT IN REACH. CPOC.
[2019-07-18 20:30] VITALS: BP 129/59
--- NOTE | 2019-07-18 21:31 | NUR ---
BEDTIME MEDS GIVEN. IV ABT UP AND INFUSING. PT TEACHING ON LUNESTA TO PROMOTE SLEEP. CALL LIGHT IN REACH.
[2019-07-19 04:30] VITALS: BP 112/64
[2019-07-19 05:55] LABS: BASOPHILS 0.2 % (0-2); EOSINOPHILS 3.7 % (0-7); HEMATOCRIT 34.6 % (36.0-48.0); HEMOGLOBIN 11.3 g/dL (12-16); IMMATURE GRANULOCYTES 0.2 % (0-5); LYMPHOCYTES 19.4 % (15-50); MCH 30.5 pg (26.0-34.0); MCHC 32.7 g/dL (31.0-37.0); MCV 93.3 fL (80.0-100.0); MEAN PLATELET VOLUME 11.7 fL (7.4-10.4); MONOCYTES 9.8 % (2-11); NEUTROPHILS 66.7 % (40-80); PLATELET COUNT 228 10x3/uL (130-400); RBC 3.71 10x6/uL (4.00-5.40); WBC 8.1 10x3/uL (4.8-10.8)
[2019-07-19 06:18] LABS: INR 1.56 (0.85-1.17); PROTIME 18.5 SECONDS (11.6-15.0)
[2019-07-19 06:24] LABS: ANION GAP 12.5 mmol/L (8-16); CARBON DIOXIDE 26.8 mmol/L (21.0-32.0); CREATININE - SERUM 0.8 mg/dL (0.6-1.3); POTASSIUM - SERUM 4.3 mmol/L (3.5-5.1)
--- NOTE | 2019-07-19 07:00 | NUR ---
RECEIVED REPORT. ASSUMED CARE OF PATIENT. CALL LIGHT WITHIN REACH. RESP EVEN AND UNLABORED. PATIENT RESTING WITH EYES CLOSED. MALE VISITOR AT BEDSIDE. NO DISTRESS. SR ON TELEMETRY, RATE 76.
[2019-07-19 09:32] VITALS: BP 118/55
[2019-07-19] MEDS ORDERED: ZITHROMAX250 MG PO (11:24)
[2019-07-19] MEDS ORDERED: PROTONIX40 MG PO (11:25)
--- NOTE | 2019-07-19 11:57 | NUR ---
20 GAUGE IV REMOVED FROM LEFT AC. CATHETER TIP INTACT. NO BLEEDING FROM SITE. 2X2 GAUZE APPLIED AND SECURED WITH BANDAID. 22 GAUGE IV REMOVED FROM RIGHT FOREARM. CATHETER TIP INTACT. NO BLEEDING FROM SITE. 2X2 GAUZE APPLIED AND SECURED WITH BANDAID. PATIENT TOLERATED IV REMOVAL WELL. PATIENT IS BEING DISCHARGED TO HOME.
[2019-07-19] MEDS ORDERED: PLAVIX75 MG PO (12:36)
--- NOTE | 2019-07-19 12:51 | NUR ---
CALLED DR ROMERO ARIZMENDI ASA FOR PT SHE IS ON COUMADIN AND PLAVIX. PER DR ROMERO KRISHNAMURTHY ASA @ DISCHARGE.
--- NOTE | 2019-07-19 13:15 | NUR ---
DISCHARGE INSTRUCTIONS PROVIDED TO PATIENT. PATIENT VERBALIZED UNDERSTANDING OF ALL INSTRUCTIONS PROVIDED.
--- NOTE | 2019-07-19 13:24 | NUR ---
PATIENT LEFT UNIT AT THIS TIME VIA WHEELCHAIR WITH ALL PERSONAL BELONGINGS. PATIENT IN NO DISTRESS UPON DISCHARGE. PATIENT PROVIDED WITH WRITTEN PRESCRIPTION FOR PLAVIX AND SHE STATES SHE WILL GET IT FILLED IN THE AM WHEN SHE PICKS UP HER OTHER PRESCRIPTIONS. NO DISTRESS UPON LEAVING UNIT.
--- NOTE | 2019-07-19 17:02 | MORECARE ---
CASE MANAGEMENT DISCHARGE SUMMARY PATIENT: HEATHER KELLY UNIT: [id number] ADM DATE: 07/13/19 AGE: 74 : 45 SEX: F ROOM/BED: D.4950 AUTHOR: JESSICA,DOC PHYSICIAN: REFERRING PHYSICIAN: CEDRICK GIRARD MD DATE OF SERVICE: 07/19/19 Discharge Plan Patient Name: HEATHER KELLY Facility: [facility]:[place] : 1945 Planned Disposition: Home Anticipated Discharge Date: Discharge Date: 07/19/2019 Expected LOS: Initial Reviewer: [email or web address] Initial Review Date: 07/15/2019 Generated: 07/19/19 6:01 pm Comments DCP- Discharge Planning Updated by [email or web address]: Jeannine Hanson on 07/19/19 3:[address] Patient Name: HEATHER KELLY Encounter No: [id number] : 1945 Primary Insurance: MEDICARE A & B Anticipated DC Date: Planned Disposition: Home External Planned Provider: : Ciara LIMON SIGNED 07/19/19 @1210 DCP follow-up note: Patient and family in agreement with discharge plan. No changes to plan. Case management will follow and assist as needed. Jeannine Hanson DCP- Discharge Planning Updated by [id number]: Danny Andrade on 07/15/19 3:[address] Patient Name: HEATHER KELLY Admission Status: ER Accout number: [id number] Admission Date: 07-13-2019 : 1945 Admission Diagnosis: Attending: CEDRICK GIRARD Current LOS: 2 Anticipated DC Date: Planned Disposition: Home Primary Insurance: MEDICARE A & B Discharge Planning Comments: CM MET WITH PT IN ROOM TO DISCUSS DISCHARGE PLANNING AND NEEDS. PT REPORTS LIVING AT HOME INDEPENDENTLY WITH HEHER SISTER IN LAW. 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 PT HAS NO MEDICAL EQUIPMENT AND NO OUTSIDE SERVICES ASSISTING IN THE HOME. CM DISCUSSED AVAILABILITY OF HOME HEALTH, REHAB SERVICES AND MEDICAL EQUIPMENT. PT DENIES DISCHARGE NEEDS, REPORTS HER FAMILY OR FRIEND WILL PICK HER UP FOR DISCHARGE HOME. IMPORTANT MESSAGE FROM MEDICARE PROVIDED AND EXPLAINED. PT PLANS TO DISCHARGE HOME WITH FAMILY AND HAS NO ANTICIPATED DISCHARGE NEEDS. FAMILY OR FRIEND TO TRANSPORT AT DISCHARGE. CM TO FOLLOW AND ASSIST NEEDED. Garage Mechanic: Danny Raymond DCPIA - Discharge Planning Initial Assessment Updated by [id number]: Danny Andrade on 07/15/19 4:10 pm * Is the patient Alert and Oriented? Yes * How many steps to enter\exit or inside your home? * PCP DR. NUNEZ * Pharmacy [facility] * Preadmission Environment Home with Family * ADLs Independent * Equipment None * Other Equipment NO MEDICAL EQUIPMENT PROVIDER PREFERENCE * List name and contact numbers for known caregivers / representatives who currently or will assist patient after discharge: JASE FERRERA, FRIEND, MICK CARVAJAL, SISTER IN LAW, * Verbal permission to speak to the caregivers and representatives has been obtained from the patient. N/A * Community resources currently utilized None * Please name any agencies selected above. NONE * Additional services required to return to the preadmission environment? No * Can the patient safely return to the preadmission environment? Yes * Has this patient been hospitalized within the prior 30 days at any hospital? No Coverage Notice Reviewer: [id number] - Danny Andrade Notice Issued Date-Time: 07/15/2019 15:50 Notice Type: IM Discharge Notice Notice Delivered To: Patient Relationship to Patient: Customer Service Advocate Name: Delivery Method: HAND - Hand Delivered Franca Days: Prior Verbal Notification: Recipient Understood Notice: Yes Recipient Signature: Yes Med Rec Note Co-signed by Attending: Coverage Notice Comment: Reviewer: [email or web address] Raj Hanson Notice Issued Date-Time: 07/19/2019 12:10 Notice Type: IM Discharge Notice Notice Delivered To: Patient Relationship to Patient: Self Customer Service Advocate Name: Delivery Method: HAND - Hand Delivered Franca Days: Prior Verbal Notification: Recipient Understood Notice: Yes Recipient Signature: Yes Med Rec Note Co-signed by Attending: Coverage Notice Comment: Last DP export: 07/15/19 3:15 p Patient Name: HEATHER KELLY Page [id number] at 1702 All edits/amendments must be made on the electronic document DICTATION DATE: 07/19/191700 CERTIFIED ALCOHOL COUNSELOR: FIORELLA 07/19/19 170 RPT#: [id number] DC DATE:07/19/19 STATUS: DIS IN [facility] [address] [place] [address] END OF REPORT
== END 2019-07-19 13:45 | disposition home or self-care (01) | DRG 248 ==
LOC: D.ER 18:15 → D.M2 20:42
PROVIDERS: Family Medicine; Internal Medicine Cardiovascular Disease; ADMIT Internal Medicine Nephrology; ATTEND Internal Medicine Nephrology
PROC: B2111ZZ Fluoroscopy of Multiple Coronary Arteries using Low Osmolar Contrast (ICD-10-PCS; 2019-07-17)
PROC: B2151ZZ Fluoroscopy of Left Heart using Low Osmolar Contrast (ICD-10-PCS; 2019-07-17)
PROC: B2121ZZ Fluoroscopy of Single Coronary Artery Bypass Graft using Low Osmolar Contrast (ICD-10-PCS; 2019-07-17)
PROC: B2181ZZ Fluoroscopy of Left Internal Mammary Bypass Graft using Low Osmolar Contrast (ICD-10-PCS; 2019-07-17)
PROC: 02703DZ Dilation of Coronary Artery, One Artery with Intraluminal Device, Percutaneous Approach (ICD-10-PCS; principal; 2019-07-17 07:16)
PROC: 4A023N7 Measurement of Cardiac Sampling and Pressure, Left Heart, Percutaneous Approach (ICD-10-PCS; 2019-07-17 07:16)
DX: I21.4 Non-ST elevation (NSTEMI) myocardial infarction (principal); J18.9 Pneumonia, unspecified organism; I25.110 Atherosclerotic heart disease of native coronary artery with unstable angina pectoris; Z95.2 Presence of prosthetic heart valve; I10 Essential (primary) hypertension

== ENCOUNTER 2019-08-25 08:00 | Outpatient (CLI) | payer MEDICARE, OTHER ==
[2019-07-16 13:10] VITALS: BMI 24.7
[~2019-08-25 08:00] MED LIST: COUMADIN2 MG PO; COUMADIN3 MG PO; NITROQUICK0.4 MG SL; PLAVIX75 MG PO; PROTONIX40 MG PO; ZITHROMAX250 MG PO
== END 2019-08-25 23:59 | disposition home or self-care (01) ==
LOC: D.MAMMO 08:00
PROVIDERS: ATTEND Family Medicine
DX: Z12.31 Encounter for screening mammogram for malignant neoplasm of breast (principal)

== ENCOUNTER 2020-01-25 13:11 | Emergency (ER) | payer MEDICARE, OTHER ==
[~2020-01-25] VITALS: Ht 170.2 cm; Wt 62.3 kg
[2020-01-25 13:24] VITALS: Ht 170.2 cm; Wt 62.3 kg
[2020-01-25 15:31] LABS: BASOPHILS 0.6 % (0-2); EOSINOPHILS 7.8 % (0-7); HEMATOCRIT 33.9 % (36.0-48.0); HEMOGLOBIN 10.9 g/dL (12-16); IMMATURE GRANULOCYTES 1.4 % (0-5); LYMPHOCYTES 15.6 % (15-50); MCH 29.5 pg (26.0-34.0); MCHC 32.2 g/dL (31.0-37.0); MCV 91.6 fL (80.0-100.0); MEAN PLATELET VOLUME 10.7 fL (7.4-10.4); MONOCYTES 5.8 % (2-11); NEUTROPHILS 68.8 % (40-80); PLATELET COUNT 303 10x3/uL (130-400); RDW 13.2 % (11.5-14.5)
[2020-01-25 15:45] LABS: INR 4.91 (0.85-1.17); PROTIME 44.7 SECONDS (11.6-15.0)
[2020-01-25 15:46] LABS: APTT 101.2 SECONDS (22.8-39.4)
[2020-01-25 15:49] LABS: CALC OSMOLALITY 280 mosm/kg (275-300); CALCIUM 8.5 mg/dL (8.5-10.1); CARBON DIOXIDE 27.3 mmol/L (21.0-32.0); CHLORIDE - SERUM 102 mmol/L (98-107); CREATININE - SERUM 1.2 mg/dL (0.6-1.3); GLUCOSE 93 mg/dL (74-106); POTASSIUM - SERUM 4.2 mmol/L (3.5-5.1); SODIUM 138 mmol/L (136-145); UREA NITROGEN 27 mg/dL (7-18); eGFR NON AFRICAN AMERICAN 46 mL/min (90-120)
[2020-01-25 16:02] LABS: ALBUMIN 3.1 g/dL (3.4-5.0); ALKALINE PHOSPHATASE 95 U/L (30-120); ALT (SGPT) 19 U/L (10-68); BILIRUBIN - TOTAL 0.16 mg/dL (0.2-1.3); CKMB 1.1 U/L (0.0-3.6); CREATINE KINASE 85 UL (21-215); MAGNESIUM - SERUM 1.8 mg/dL (1.8-2.4); PROTEIN - SERUM 7.4 g/dL (6.4-8.2); TROPONIN-I < 0.017 ng/mL (0.000-0.060)
[2020-01-25 16:09] VITALS: BP 158/83
[2020-01-26] MEDS ORDERED: ZYLOPRIM100 MG PO (16:35)
== END 2020-01-25 18:36 | disposition home or self-care (01) ==
LOC: D.ER 13:11
PROVIDERS: Emergency Medicine
DX: K29.70 Gastritis, unspecified, without bleeding (principal); R07.9 Chest pain, unspecified

== ENCOUNTER 2020-01-26 16:14 | Inpatient (IN) | payer MEDICARE, OTHER ==
[~2020-01-26] VITALS: Ht 170.2 cm; Wt 63.5 kg
[2020-01-26] MEDS ORDERED: ZYLOPRIM100 MG PO (16:35)
[2020-01-26 16:47] VITALS: BP 190/77
[2020-01-26 17:37] LABS: BASOPHILS 0.5 % (0-2); EOSINOPHILS 5.5 % (0-7); HEMATOCRIT 35.6 % (36.0-48.0); HEMOGLOBIN 11.4 g/dL (12-16); IMMATURE GRANULOCYTES 4.1 % (0-5); LYMPHOCYTES 18.8 % (15-50); MCH 29.3 pg (26.0-34.0); MCV 91.5 fL (80.0-100.0); MEAN PLATELET VOLUME 10.6 fL (7.4-10.4); MONOCYTES 7.5 % (2-11); NEUTROPHILS 63.6 % (40-80); RBC 3.89 10x6/uL (4.00-5.40); RDW 13.4 % (11.5-14.5); WBC 10.3 10x3/uL (4.8-10.8)
--- NOTE | 2020-01-26 17:50 | NUR ---
OCCULT BLOOD POSITIVE
--- NOTE | 2020-01-26 17:51 | NUR ---
URINE TO LAB
[2020-01-26 17:54] LABS: CALC OSMOLALITY 282 mosm/kg (275-300); CALCIUM 8.3 mg/dL (8.5-10.1); CARBON DIOXIDE 29.7 mmol/L (21.0-32.0); CHLORIDE - SERUM 101 mmol/L (98-107); CREATININE - SERUM 1.3 mg/dL (0.6-1.3); GLUCOSE 102 mg/dL (74-106); POTASSIUM - SERUM 4.4 mmol/L (3.5-5.1); SODIUM 140 mmol/L (136-145); UREA NITROGEN 25 mg/dL (7-18); eGFR NON AFRICAN AMERICAN 42 mL/min (90-120)
[2020-01-26 18:02] LABS: PLATELET COUNT 371 10x3/uL (130-400)
--- NOTE | 2020-01-26 18:02 | NUR ---
PT REPORTS RELIEF OF PAIN WITH 20-20-20
[2020-01-26 18:12] LABS: BILIRUBIN NEGATIVE (NEGATIVE); GLUCOSE NEGATIVE (NEGATIVE); KETONE NEGATIVE (NEGATIVE); NITRITE NEGATIVE (NEGATIVE); UROBILINOGEN NORMAL (NORMAL)
[2020-01-26 18:13] LABS: APTT 87.9 SECONDS (22.8-39.4); INR 3.36 (0.85-1.17); PROTIME 33.4 SECONDS (11.6-15.0)
[2020-01-26 18:13] LABS: BACTERIA MANY /hpf (NEGATIVE); RED CELLS - URINE 0-5 /hpf (0-5); WHITE CELLS - URINE 25-50 /hpf (NEGATIVE)
[2020-01-26 18:27] LABS: ALBUMIN 3.5 g/dL (3.4-5.0); ALKALINE PHOSPHATASE 102 U/L (30-120); ALT (SGPT) 22 U/L (10-68); AMYLASE - SERUM 43 U/L (25-115); BILIRUBIN - TOTAL 0.22 mg/dL (0.2-1.3); CKMB 1.3 U/L (0.0-3.6); CREATINE KINASE 92 UL (21-215); LIPASE 136 U/L (73-393); PROTEIN - SERUM 7.3 g/dL (6.4-8.2); URIC ACID 8.2 mg/dL (2.6-7.2)
[2020-01-26 18:35] LABS: TROPONIN-I < 0.017 ng/mL (0.000-0.060)
[2020-01-26 19:20] VITALS: BP 151/48
--- NOTE | 2020-01-26 19:32 | NUR ---
NS 0.9% INFUSING AT 999 ML/H ON SHIFT CHANGE
--- NOTE | 2020-01-26 19:32 | NUR ---
ROCEPHIN INFUSING AT 100 ML/H ON SHIFT CHANGE
--- NOTE | 2020-01-26 19:32 | NUR ---
REPORT GIVEN TO NOHEMY
[2020-01-26 20:31] VITALS: BP 111/94
[2020-01-26 22:13] VITALS: BP 134/65; BMI 21.9
[2020-01-27] VITALS: BP 134/65
[2020-01-27 04:00] VITALS: BP 123/47
[2020-01-27 05:21] LABS: BASOPHILS 0.4 % (0-2); EOSINOPHILS 6.8 % (0-7); HEMATOCRIT 30.8 % (36.0-48.0); HEMOGLOBIN 9.9 g/dL (12-16); LYMPHOCYTES 24.5 % (15-50); MCH 29.4 pg (26.0-34.0); MCHC 32.1 g/dL (31.0-37.0); MCV 91.4 fL (80.0-100.0); MEAN PLATELET VOLUME 10.7 fL (7.4-10.4); MONOCYTES 9.8 % (2-11); NEUTROPHILS 55.5 % (40-80); PLATELET COUNT 343 10x3/uL (130-400); RBC 3.37 10x6/uL (4.00-5.40); RDW 13.4 % (11.5-14.5); WBC 9.2 10x3/uL (4.8-10.8)
[2020-01-27 05:46] LABS: INR 3.45 (0.85-1.17); PROTIME 34.1 SECONDS (11.6-15.0)
[2020-01-27 05:47] LABS: APTT 86.8 SECONDS (22.8-39.4)
[2020-01-27 06:02] LABS: ALBUMIN 2.8 g/dL (3.4-5.0); ANION GAP 13.4 mmol/L (8-16); BILIRUBIN - TOTAL 0.22 mg/dL (0.2-1.3); CALCIUM 7.7 mg/dL (8.5-10.1); CARBON DIOXIDE 26.7 mmol/L (21.0-32.0); CREATININE - SERUM 1.2 mg/dL (0.6-1.3); MAGNESIUM - SERUM 1.8 mg/dL (1.8-2.4); PHOSPHOROUS 3.6 mg/dL (2.5-4.9); POTASSIUM - SERUM 4.1 mmol/L (3.5-5.1); PROTEIN - SERUM 6.5 g/dL (6.4-8.2)
[2020-01-27 10:09] VITALS: BP 136/59
[2020-01-27 13:18] LABS: HEMATOCRIT 32.3 % (36.0-48.0); HEMOGLOBIN 10.2 g/dL (12-16)
[2020-01-27 13:20] VITALS: Ht 170.2 cm; Wt 63.5 kg
[2020-01-27 13:36] VITALS: BP 116/50
[2020-01-27 18:21] LABS: HEMATOCRIT 31.5 % (36.0-48.0)
[2020-01-27 20:00] VITALS: BP 111/67
[2020-01-28 04:00] VITALS: BP 145/71
[2020-01-28 06:58] LABS: BASOPHILS 0.2 % (0-2); EOSINOPHILS 4.7 % (0-7); HEMATOCRIT 29.4 % (36.0-48.0); HEMOGLOBIN 9.5 g/dL (12-16); IMMATURE GRANULOCYTES 1.9 % (0-5); LYMPHOCYTES 18.7 % (15-50); MCH 29.3 pg (26.0-34.0); MCHC 32.3 g/dL (31.0-37.0); MCV 90.7 fL (80.0-100.0); MEAN PLATELET VOLUME 10.9 fL (7.4-10.4); MONOCYTES 7.4 % (2-11); NEUTROPHILS 67.1 % (40-80); PLATELET COUNT 326 10x3/uL (130-400); RBC 3.24 10x6/uL (4.00-5.40); RDW 13.1 % (11.5-14.5); WBC 11.2 10x3/uL (4.8-10.8)
[2020-01-28 07:18] LABS: ANION GAP 12.4 mmol/L (8-16); CALCIUM 8.1 mg/dL (8.5-10.1); CARBON DIOXIDE 24.7 mmol/L (21.0-32.0); CREATININE - SERUM 1.1 mg/dL (0.6-1.3); MAGNESIUM - SERUM 1.8 mg/dL (1.8-2.4); POTASSIUM - SERUM 4.1 mmol/L (3.5-5.1)
--- NOTE | 2020-01-28 07:40 | NUR ---
PT RESTING QUIETLY IN BED WATCHING TV. RESP EVEN AND UNLABORED. DENIES PAIN AT THIS TIME. IV TO RIGHT HAND WITH NS @ 50ML/HR, PROTONIX @ 10ML/HR INFUSING VIA PUMPS. SITE WITHOUT REDNESS OR EDEMA. DENIES NAUSEA OR VOMITING. REPORTS BM THIS AM. DENIES FURTHER NEEDS AT THIS TIME. CL WITHIN REACH. ENCOURAGED TO CALL WITH NEEDS. CONTINUE TO MONITOR.
[2020-01-28 10:12] LABS: INR 2.99 (0.85-1.17); PROTIME 30.6 SECONDS (11.6-15.0)
[2020-01-28 10:13] VITALS: BP 108/52
[2020-01-28 14:34] VITALS: BP 137/69
== END 2020-01-28 18:07 | disposition home or self-care (01) | DRG 378 ==
LOC: D.ER 16:14 → D.MS 19:33
PROVIDERS: Family Medicine; Internal Medicine Gastroenterology; ADMIT Family Medicine; ATTEND Family Medicine
PROC: 0W3P8ZZ Control Bleeding in Gastrointestinal Tract, Via Natural or Artificial Opening Endoscopic (ICD-10-PCS; principal; 2020-01-27 14:30)
DX: K25.0 Acute gastric ulcer with hemorrhage (principal); N39.0 Urinary tract infection, site not specified; D64.9 Anemia, unspecified; Z79.01 Long term (current) use of anticoagulants; I25.10 Atherosclerotic heart disease of native coronary artery without angina pectoris; Z95.2 Presence of prosthetic heart valve

== ENCOUNTER 2020-09-28 12:09 | Day surgery (SDC) | payer MEDICARE, OTHER ==
[~2020-09-28] VITALS: Ht 171.4 cm; Wt 71.8 kg
[~2020-09-28 12:09] MED LIST changes: +ZYLOPRIM100 MG PO
[2020-09-28] MEDS ORDERED: ACETAMINOPHEN325 MG PO (12:31)
[2020-09-28] MEDS ORDERED: TRAZODONE HCL50 MG PO (12:32)
[2020-09-28 12:55] VITALS: BP 150/91; Ht 171.4 cm; Wt 71.8 kg
[2020-09-28 13:06] LABS: BASOPHILS 0.4 % (0-2); EOSINOPHILS 2.7 % (0-7); HEMATOCRIT 41.7 % (36.0-48.0); HEMOGLOBIN 13.5 g/dL (12-16); IMMATURE GRANULOCYTES 0.1 % (0-5); LYMPHOCYTE ABS# 2.31 10x3/uL (1.18-3.74); LYMPHOCYTES 31.5 % (15-50); MCH 29.3 pg (26.0-34.0); MCHC 32.4 g/dL (31.0-37.0); MCV 90.7 fL (80.0-100.0); MEAN PLATELET VOLUME 11.9 fL (7.4-10.4); MONOCYTES 6.5 % (2-11); NEUTROPHILS 58.8 % (40-80); RDW 13.7 % (11.5-14.5); WBC 7.3 10x3/uL (4.8-10.8)
[2020-09-28 13:10] LABS: INR 2.22 (0.85-1.17); PROTIME 22.9 SECONDS (11.6-15.0)
[2020-09-28 13:12] LABS: PLATELET COUNT 256 10x3/uL (130-400)
[2020-09-28 13:15] LABS: CALCIUM 8.7 mg/dL (8.5-10.1); CREATININE - SERUM 1.1 mg/dL (0.6-1.3); LDL-HDL RATIO 4.2 ratio (1.5-3.5)
--- NOTE | 2020-09-28 13:42 | NUR ---
Pt's INR too high. Dr. Vela rounded and spoke with pt. He will have pt come back Saturday morning for procedure. PIV d/c'd with cath tip intact. tolerated well. Pt instructed to get up and dressed at this time. Appt time given for Saturday appt.
== END 2020-09-28 14:00 | disposition home or self-care (01) ==
LOC: D.CATH 12:09
PROVIDERS: ATTEND Internal Medicine Cardiovascular Disease
DX: I25.119 Atherosclerotic heart disease of native coronary artery with unspecified angina pectoris (principal); Z53.9 Procedure and treatment not carried out, unspecified reason

== ENCOUNTER 2020-09-30 08:22 | Inpatient (IN) | payer MEDICARE, OTHER ==
[~2020-09-30] VITALS: Ht 171.4 cm; Wt 72.4 kg
[2020-09-30] VITALS (22 sets, daily range): BP systolic 80–155; BP diastolic 51–88; BMI 24.6
--- NOTE | ~2020-09-30 | HEMODYNAMI ---
PATIENT:HEATHER KELLY MEDICAL RECORD: [id number] : 45 LOCATION:[facility] ADMISSION DATE: 09/30/20 Generatedon:112:46 Patient name: HEATHER KELLY Patient #: [id number] SSN: [id number] : 1945 Date of study: 09/30/2020 Page: Of Hemodynamic Procedure Report Patient Data Patient Demographics Procedure consent was obtained First Name: HEATHER Gender: Female Last Name: LETICIA : 1945 Patient #: [id number] Age: 75 year(s) Race: SSN: [id number] Additional ID: [id number] Contact details Address: [address] [address] State: [place] City: [place] Zip code: [address] Past Medical History History of disease Date Diagnosis Comments CAD Valvular heart disease Allergies Allergen Reaction Date Comments Reported Other allergy 07/17/2019 ASPIRIN, CODEINE, IRON, MORPHINE, LEVINFLOXIN Other allergy 09/30/2020 ASA, CEPHALEXIN, CODEINE, IRON, KEFLEX, MILK OF MAGNESIA, MORPHINE, PCN, VANCOMYCIN Admission Admission Data Admission Date: 09/30/2020 Admission Time: 8:22 Arrival Date: 09/30/2020 Arrival Time: 0:00 Height (in.): 67.32 BSA: 1.85 (m2) Height (cm.): 171 BMI: 24.96 (kg/m2) Weight (lbs.): 160.94 Weight (kg.): 73 Lab Results Lab Result Date: 09/30/2020 Lab Result Time: 0:00 Biochemistry Name Units Result Min Max BUN mg/dl 16 --(---*)-- 7 18 Creatinine mg/dl 1.1 --(--*-)-- 0.6 1.3 eGFR ml/min 51 *-(----)-- 90 120 NONAFRICAN CBC Name Units Result Min Max Hematocrit % 40.6 -*(----)-- 42 54 Hemoglobin g/dl 13.4 -*(----)-- 13.5 17.5 Procedure Procedure Types Cath Procedure Diagnostic Procedure LHC Coronaries w/Grafts FFR/IVUS FFR Initial Aortic Root Angiography Sedation Charges Moderate Sedation 55-69 minutes PCI Procedure Coronary Stent Coronary Stent Initial Hemochron ACT Test Procedure Description Procedure Date Procedure Date: 09/30/2020 Procedure Start Time: 11:06 Procedure End Time: 12:43 Procedure Staff Name Function Bruce Vela MD Performing Physician Maki Vanessa RT Monitor Nancy Bray RT Scrub Tony Vicente RN Nurse Procedure Data Cath Procedure Fluoroscopy Diagnostic fluoroscopy Total fluoroscopy Time: time: 20.1 min 20.1 min Diagnostic fluoroscopy Total fluoroscopy dose: dose: 2783 mGy 2783 mGy Contrast Material Contrast Material Type Amount (ml) Isovue 300 252 Entry Location Entry Primary Successful Side Size Upsize Upsize Entry Closure Succes sful Closure Location (Fr) 1 (Fr) 2 (Fr) Remarks Device Remarks Femoral Right 5 Fr 6 Fr Exoseal artery Short Femoral Right 6 Fr vein Short Estimated blood loss: 10 ml Diagnostic catheters Device Type Used For End Catheter Placement MULTIPACK JL 4.0 5Fr Procedure catheter MULTIPACK 3DRC 5Fr Procedure catheter DIAGNOSTIC IM 5Fr Procedure catheter ([id number]) MULTIPACK Pigtail 5 Fr Procedure catheter MULTIPACK JL 4.0 5Fr Procedure catheter Procedure Complications No complications Procedure Medications Medication Administration Route Dosage 0.9% NaCl I.V. 100 ml/hr Oxygen etCO2 Nasal cannula 2 l/min Heparin Flush Bag added to field 2 bags (1000units/500ml NS) Lidocaine 2% added to field 20 Versed I.V. 2 mg Fentanyl I.V. 100 mcg Heparin Bolus I.V. 4000 units Versed I.V. 1 mg Heparin Bolus I.V. 3000 units Versed I.V. 1 mg Dopamine I.V. drip 10 mcg/kg/min (400mg/250ml D5W) Oxygen NRB 15 l/min Integrilin (Bolus I.V. 6.8 ml 2mg/ml) Integrilin Drip I.V. drip 11.7 ml/hr (75mg/100ml) Fentanyl I.V. 50 mcg Epinephrine I.V. 1 mg Epinephrine I.V. 1 mg Epinephrine I.V. 1 mg Dopamine I.V. drip 20 mcg/kg/min (400mg/250ml D5W) Fentanyl I.V. 50 mcg Hemodynamics Rest BSA: 1.85 (m2) HGB: 13.4 (g/dl) O2 Consumption: Estimated: 178 (ml/min) O2 Consu mption indexed: Estimated:96.22 (ml/min/m) Heart Rate: 84 (bpm) Snapshots Pre Cath Intra NCS Post Cath Vital Signs Time Heart Resp SPO2 etCO2 NIBP (mmHg) Rhythm Pain Status Sedation Rate (ipm) (%) (mmHg) Level (bpm) 10:51:59 88 22 98 32.9 219/106(164) NSR 9 (11) , 10(A) Excruciating unbearable 10:56:27 83 16 100 14.9 211/96(162) NSR 9 (11) , 10(A) Excruciating unbearable 11:01:02 81 18 98 35.2 221/98(167) NSR 4 (11) , 10(A) Distressing 11:06:44 88 12 96 41.2 209/100(158) NSR 0 (11) , No 9(A) pain 11:11:14 92 19 97 37.4 200/103(152) NSR 0 (11) , No 9(A) pain 11:16:54 91 20 97 35.9 213/113(160) NSR 0 (11) , No 9(A) pain 11:21:27 83 14 96 32.9 212/101(156) NSR 4 (11) , 10(A) Distressing 11:25:55 83 25 96 23.9 139/90(122) NSR 4 (11) , 10(A) Distressing 11:30:54 86 21 87 23.2 Measuring NSR 4 (11) , 10(A) Distressing 11:31:14 88 19 88 24.7 121/101(102) NSR 4 (11) , 10(A) Distressing 11:35:20 61 21 22.4 102/49(68) NSR 4 (11) , 10(A) Distressing 11:39:22 46 35 14.2 86/68(80) NSR 4 (11) , 10(A) Distressing 11:43:23 45 31 0 101/61(65) NSR 4 (11) , 10(A) Distressing 11:47:31 18 28 100 0 80/48(68) NSR 4 (11) , 10(A) Distressing 11:51:35 78 27 98 0 89/30(67) NSR 4 (11) , 10(A) Distressing 11:55:39 78 33 92 0 76/45(61) NSR 4 (11) , 4(A) Distressing 12:00:32 95 18 92 0 160/100(115) NSR 4 (11) , 4(A) Distressing 12:05:39 125 32 0 166/119(150) NSR 4 (11) , 10(A) Distressing 12:10:09 81 34 0 54/34(49) NSR 4 (11) , 10(A) Distressing 12:14:50 79 21 0 141/68(90) NSR 4 (11) , 10(A) Distressing 12:20:56 145 29 99 0 185/109(135) NSR 4 (11) , 10(A) Distressing 12:25:10 143 38 92 0 174/96(127) NSR 4 (11) , 10(A) Distressing 12:29:29 134 21 89 0 161/87(122) NSR 4 (11) , 10(A) Distressing 12:33:45 139 18 89 0 160/84(115) NSR 4 (11) , 10(A) Distressing 12:37:58 136 20 88 0 154/79(118) NSR 4 (11) , 10(A) Distressing 12:42:08 131 21 88 0 143/75(113) NSR 4 (11) , 10(A) Distressing Medications Time Medication Route Dose Verified Delivered Reason Notes Effectiveness by by 10:54:23 0.9% NaCl I.V. 100 ml/hr Tony Tony Per physician Jules Vicente RN RN 10:54:31 Oxygen etCO2 2 l/min Tony Tony for low 02 sats Nasal Jules Vicente cannula RN RN 10:54:41 Heparin Flush added 2 bags Toyn Tony used for Bag to Jules Vicente procedure (1000units/500ml field RN RN NS) 10:54:54 Lidocaine 2% added 20ml vial Tony Tony for local to Lorigan Lorigan anesthetic field RN RN 11:06:36 Versed I.V. 2 mg Tony Tony for sedation Jules Vicente RN RN 11:06:45 Fentanyl I.V. 100 mcg Tony Tony for sedation Jules Vicente RN RN 11:21:18 Heparin Bolus I.V. 4000 units Tony Tony for Lorigan Jules anticoagulation RN RN 11:22:29 Versed I.V. 1 mg Tony Tony for sedation Jules Vicente RN RN 11:29:45 Heparin Bolus I.V. 3,000 Tony Tony for units Jules Vicente anticoagulation RN RN 11:29:52 Versed I.V. 1 mg Tony Tony for sedation Jules Vicente RN RN 11:46:58 Dopamine I.V. 10 Tony Tony For hypotension (400mg/250ml drip mcg/kg/min Lorjose Vicente D5W) RN RN 11:47:09 Oxygen NRB 15 l/min Tony Tony for low 02 sats Jules Vicente RN RN 12:02:10 Epinephrine I.V. 1 mg Tony Tony for code blue Jules Vicente RN RN 12:02:56 Integrilin I.V. 6.8 ml Tony Tony for (Bolus 2mg/ml) Jules Vicente antiplatelet RN RN therapy 12:11:33 Epinephrine I.V. 1 mg Tony Tony for code blue Jules Vicente RN RN 12:12:51 Dopamine I.V. 20 Tony Tony For hypotension increased (400mg/250ml drip mcg/kg/min Lorigan Lorigan drip D5W) RN RN rate. 12:15:38 Epinephrine I.V. 1 mg Tony Tony for code blue Jules Vicente RN RN 12:24:06 Integrilin Drip I.V. 11.7 ml/hr Tony Tony for (75mg/100ml) drip Jules Vicente antiplatelet RN RN therapy 12:29:32 Fentanyl I.V. 50 mcg Tony Tony for sedation Jules Vicente RN RN 12:39:27 Fentanyl I.V. 50 mcg Tony Tony for sedation Jules Vicente RN slitter and rewinder machine operator Log Time Note 10:30:20 Tony Vicente RN sent for patient. Start room use. 10:38:13 Procedure Status Elective Heart Cath (OP). 10:38:14 Time tracking: Regular hours (M-F 7:00 - 5:00) 10:38:18 Plan of Care:Hemodynamics will remain stable., Cardiac rhythm will remain stable., Comfort level will be maintained., Respiratory function will remain adequate., Patient/ family verbilizes understanding of procedure., Procedure tolerated without complication., Recovers from procedure without complications.. 10:42:22 Patient allergic to Other allergyASA, CEPHALEXIN, CODEINE, IRON, KEFLEX, MILK OF MAGNESIA, MORPHINE, PCN, VANCOMYCIN 10:49:37 Patient received from Pre/Post Procedure Room to CCL 2 Alert and oriented. Tansferred to table in Supine position. 10:49:39 Signed procedure consent form obtained from patient. 10:49:40 Warm blankets applied, and chad hugger turned on for patient comfort. 10:49:40 Correct patient and procedure confirmed by team. 10:49:41 ECG and BP/O2 sat monitors applied to patient. 10:49:41 Vital chart was started 10:49:42 Baseline sample Acquired. 10:49:44 Rhythm: sinus rhythm 10:49:46 Full Disclosure recording started 10:49:54 H&P Date Dictated: 09/22/2020 Within 30 days and on chart., H&P Addendum completed by physician on day of procedure. (MUST COMPLETE FOR ALL OUTPATIENTS). 10:49:55 Pre-procedure instructions explained to patient. 10:49:56 Pre-op teaching completed and patient verbalized understanding. 10:49:58 Family in patients room. 10:49:59 Patient NPO since Midnight. 10:50:00 Is the patient allergic to Iodine/contrast media? No. 10:50:01 Is patient on blood thinner?Yes 10:50:12 Patient diabetic? No. 10:50:14 Previous problem with sedation/anesthesia? No ? 10:50:15 Snore? Yes 10:50:16 Sleep apnea? No 10:50:17 Deviated septum? No 10:50:18 Sticks out tongue? Yes 10:50:19 Opens mouth fully? Yes 10:50:21 Airway obstruction? No ? 10:50:24 Dentures? Yes IN TIGHT 10:50:27 Pre procedure: right dorsailis pedis pulse 1+ Palpable, but thready & weak; easily obliterated 10:50:29 Patient pain scale 0/10 ?. 10:50:33 IV patent on arrival in left hand with 0.9% NaCl at [facility]. 10::15 Lab Result : BUN 16 mg/dl ::15 Lab Result : Creatinine 1.1 mg/dl ::15 Lab Result : eGFR NONAFRICAN 51 ml/min ::15 Lab Result : Hemoglobin 13.4 g/dl ::15 Lab Result : Hematocrit 40.6 % 10::18 Lab results completed and on chart. 10:52:21 Right groin area was prepped with chlora-prep and draped in sterile fashion 10::22 Alarms reviewed by R. N. 10::23 Sharps counted by scrub and verified by R.N. 10:52:37 Patient Weight : 160.94 lbs 10:52:38 Patient Height : 67.32 inches 10:52:42 Arrival Date: 09/30/2020 12:00:00 AM 10:54:23 0.9% NaCl 100 ml/hr I.V. was administered by Tony Vicente RN; Per physician; Verbal order read back and verified. 10:54:31 Oxygen 2 l/min etCO2 Nasal cannula was administered by Tony Vicente RN; for low 02 sats; Verbal order read back and verified. 10:54:41 Heparin Flush Bag (1000units/500ml NS) 2 bags added to field was administered by Tony Vicente RN; used for procedure; Verbal order read back and verified. 10:54:54 Lidocaine 2% 20ml vial added to field was administered by Tony Vicente RN; for local anesthetic; Verbal order read back and verified. 11:02:53 Final Timeout: patient, procedure, and site verified with staff and physician. All members of the team are in agreement. 11:02:55 Right groin site verified by team. 11:03:02 Fire Safety Assessment: A--An alcohol-based skin anteseptic being used preoperatively., C--Open oxygen or nitrous oxide is being used., D--An ESU, laser, or fiber-optic light is being used. 11:03:04 Physical assessment completed. ASA score P 2 - A patient with mild systemic disease as per Bruce Vela MD. 11:03:07 3a) 45-59 Moderately reduced kidney function. 11:03:10 Maximum allowable contrast dose (3.7 X eGFR X 0.75)142 ml. 11:03:15 Sedation plan: IV Moderate Sedation Medication:Versed, Fentanyl 11:06:11 Procedure started. 11:06:18 Local anesthetic to right femoral artery with Lidocaine 2% by Bruce Vela MD.INITIAL ACCESS ONLY 11:06:36 Versed 2 mg I.V. was administered by Tony Vicente RN; for sedation; Verbal order read back and verified. 11:06:45 Fentanyl 100 mcg I.V. was administered by Tony Vicente RN; for sedation; Verbal order read back and verified. 11:07:47 A 5 Fr sheath was inserted into the Right Femoral artery 11:08:42 Use device set Femoral Dx 11:08:43 ACIST Syringe (47496) opened to sterile field. 11:08:43 Bag Decanter (2002S) opened to sterile field. 11:08:45 ACIST Hand Control (40489) opened to sterile field. 11:08:45 ACIST Manifold (82804) opened to sterile field. 11:08:46 Tegaderm 4 x 4 (1626W) opened to sterile field. 11:08:47 Medline Cath Pack ([id number]) opened to sterile field. 11:08:47 DIAGNOSTIC Multipack 5Fr catheter set (EX7647) opened to sterile field. 11:08:48 SHEATH 5FR [place] (AJN671) opened to sterile field. 11:08:48 EMERALD Guide Wire (589-285) opened to sterile field. 11:08:55 A MULTIPACK JL 4.0 5Fr catheter was advanced over the wire and used for Procedure. 11:10:43 LCA angiography performed. 11:12:06 Catheter exchanged over wire. 11:12:11 A MULTIPACK 3DRC 5Fr catheter was advanced over the wire and used for Procedure. 11:12:15 RCA angiography performed. 11:12:17 Catheter exchanged over wire. 11:12:19 ACCDominant side:Left 11:14:03 A DIAGNOSTIC IM 5Fr catheter ([id number]) was advanced over the wire and used for Procedure. 11:14:21 SCHMITT to LAD angiography performed. 11:14:42 Catheter exchanged over wire. 11:14:54 A MULTIPACK Pigtail 5 Fr catheter was advanced over the wire and used for Procedure. 11:16:58 Aortic Root visualized 11:17:02 Catheter exchanged over wire. 11:17:13 PROCEEDING TO IFR LAD 11:19:40 [place] OmniWire (85290) opened to sterile field. 11:19:46 INFLATOR Merit BasixCompak (FV3060) opened to sterile field. 11:19:47 TUBING High Pressure Extension Tubing (Vela) ([id number]) opened to sterile field. 11:21:15 A MULTIPACK JL 4.0 5Fr catheter was advanced over the wire and used for Procedure. 11:21:18 Heparin Bolus 4000 units I.V. was administered by Tony Vicnete RN; for anticoagulation; Verbal order read back and verified. 11:22:02 Pressure wire advanced. 11:22:29 Versed 1 mg I.V. was administered by Tony Vicente RN; for sedation; Verbal order read back and verified. 11:23:11 Wire advanced across lesion. 11:23:16 LAD lesion measured at .65, .83 with IFR 11:26:42 Wire removed. 11:26:43 Guide catheter removed. 11:27:01 Proceeding to intervention. 11:27:28 Pre PCI Site: [place] LAD has 80% stenosis. 11:27:53 GUIDE 6FR XBLAD 3.5 catheter ([id number]) opened to sterile field. 11:28:23 SHEATH 6FR [place] (ZLE563) opened to sterile field. 11:28:30 Sheath upsized to a 6 Fr Short. 11:28:34 6 Fr XBLAD 3.5 guide catheter was inserted over the wire 11:29:45 Heparin Bolus 3,000 units I.V. was administered by Tony Vicente RN; for anticoagulation; Verbal order read back and verified. 11:29:52 Versed 1 mg I.V. was administered by Tony Vicente RN; for sedation; Verbal order read back and verified. 11:30:55 OMNI Pressure wire advanced. 11:31:17 Procedure type changed to Cath procedure, Diagnostic procedure, LHC, Coronaries w/Grafts, FFR/IVUS, FFR Initial, Aortic Root Angiography, Sedation Charges, Moderate Sedation 55-69 minutes, PCI procedure, Coronary Stent, Coronary Stent Initial, Hemochron ACT Test 11:35:31 WIRE REMOVED. GUIDE REMOVED FOR SIDE HOLE 11:37:12 GUIDE 6FR XBLAD 3.5 SH catheter ([id number]) opened to sterile field. 11:37:24 6 Fr XBLAD 3.5 SH guide catheter was inserted over the wire 11:38:09 OMNI Pressure wire advanced ACROSS LAD 11:41:02 BMW 300cm Straight [place] 2 wire ([id number]) opened to sterile field. 11:43:18 5Fr J Tip Temporary Pacing Catheter ([id number]) opened to sterile field. 11:43:19 SHEATH 6FR [place] (OTX103) opened to sterile field. 11:43:35 PLACING TEMP PACER 11:44:07 A 6 Fr Short sheath was inserted into the Right Femoral vein 11:45:02 Temporary pacer inserted 11:45:36 Temporary pacer turned on with the following settings: Rate 80, MA 5, Mode: Demand. 11:46:47 BMW 300 wire advanced. 11:46:58 Dopamine (400mg/250ml D5W) 10 mcg/kg/min I.V. drip was administered by Tony Vicente RN; For hypotension; Verbal order read back and verified. 11:47:09 Oxygen 15 l/min NRB was administered by Tony Vicente RN; for low 02 sats; Verbal order read back and verified. 11:51:40 BMW ADVANCED ACROSS CIRC 11:52:15 CIRC CLOSED OFF 100% 11:53:05 Inflate balloon Inflation number: 1 A EUPHORA 2.0 x 15 Balloon ([id number]) was prepped and advanced across the Prox CX , then inflated to 11 MCKAY for 0:00 (min:sec) . 11:53:38 Inflation number: 2 The EUPHORA 2.0 x 15 Balloon ([id number]) was reinflated across the Prox CX , to 11 MCKAY for 0:00 (min:sec) . 11:55:03 Balloon removed over the wire. 12:00:12 Place stent Inflation Number: 1 A LUCIO OTW 3.0 x 18 stent ([id number]) was prepped and advanced across the LMCA . The stent was deployed at 12 MCKAY for 0:00 (min:sec) . 12:01:00 CODE BLUE CALLED 12:01:14 COMPRESSIONS STARTED 12:01:55 OPA placed along with bag/valve mask respirations being given. 12:02:10 Epinephrine 1 mg I.V. was administered by Tony Vicente RN; for code blue; Verbal order read back and verified. 12:02:55 CPR STOP. Rosc obtained. 12:02:56 Integrilin (Bolus 2mg/ml) 6.8 ml I.V. was administered by Tony Vicente RN; for antiplatelet therapy; Verbal order read back and verified. 12:03:18 Inflation number: 2 The stent balloon was then re-inflated across the LMCA to 4 MCKAY for 0:00 (min:sec) . 12:03:48 Stent catheter was removed intact over wire. 12::18 CPR STARTED 12:11:26 REPSIRATORY CALLED 12:11:33 Epinephrine 1 mg I.V. was administered by Tony Vicente RN; for code blue; Verbal order read back and verified. 12:12:[address] 12:12:51 Dopamine (400mg/250ml D5W) 20 mcg/kg/min I.V. drip was administered by Tony Vicente RN; For hypotension; increased drip rate. Verbal order read back and verified. 12:15:12 CYN ARRIVED 12:15:38 Epinephrine 1 mg I.V. was administered by Tony Vicente RN; for code blue; Verbal order read back and verified. 12:17:02 Dr. Lee at head of bed, intubated pt with 8.5 et tube at 21 at lipline. secured with device, xray confimation performed along with Co2 detector. 12:17:47 cpr stopped 12:21:53 Brian respiratory- hooking pt. to the vent 12:24:06 Integrilin Drip (75mg/100ml) 11.7 ml/hr I.V. drip was administered by Tony Vicente RN; for antiplatelet therapy; Verbal order read back and verified. 12:28:15 Temporary pacer turn off 12:28:15 Temporary pacer removed 12:28:22 Wire removed. 12:28:22 Guide catheter removed. 12:29:32 Fentanyl 50 mcg I.V. was administered by Tony Vicente RN; for sedation; Verbal order read back and verified. 12:30:35 EXOSEAL 6Fr (EX600) opened to sterile field. 12:30:49 Sheath removed intact; hemostasis achieved with Exoseal to the Right Femoral artery. 12:31:22 RIGHT FEMORAL VEIN SUTURED IN FOR ACCESS LINE 12:31:46 Procedure ended.(Physican Out) 12:32:47 Contrast amount:Isovue 300 252ml. 12:32:53 Fluoroscopy time 20.10 minutes. 12:32:57 Flurop Dose total: 2783 12:32:57 Fluoroscopy dose: 2783 mGy 12:33:03 Dose Area Product 871381 mGy/cm. 12:33:05 Maximum allowable dose exceeded? Yes. 12:33:06 Sharps counted by scrub and verified by R.N. 12:33:09 Post-op/insertion site Right Femoral artery dressed using a 4 x 4 and Tegaderm. 12:37:54 ACT drawn and resulted at >400 high out of range seconds. (normal therapeutic range 180-240 seconds). 12:38:33 Post-procedure physical assessment completed. ASA score P 3 - A patient with severe systemic disease as per Bruce Vela MD. 12:38:48 Post procedure rhythm: sinus tachycardia 12:38:51 Estimated blood loss: 10 ml 12:39:16 Post procedure instruction explained to patient.Patient verbalizes understanding. 12:39:17 Patient needs reinforcement of post procedure teaching. 12:39:27 Fentanyl 50 mcg I.V. was administered by Tony Vicente RN; for sedation; Verbal order read back and verified. 12:43:28 Procedure and supply charges have been captured, reviewed, submitted and are correct. 12:43:30 Procedure Complication : No complications 12:43:36 Vital chart was stopped 12:43:38 [facility] Findings: MVD- PCI performed (see procedure note) 12:43:39 See physician's report for complete and final results. 12:43:39 Operative report dictated upon procedure completion. 12:43:43 Report given to ICU. 12:43:45 Patient transfered to ICU with Bed. 12:43:52 Procedure ended. 12:43:52 Full Disclosure recording stopped 12:44:57 End room use (Document Last) 12:45:04 End room use (Document Last) 12:46:01 End room use (Document Last) Intervention Summary Intervention Notes Time ActionType Lesion and Equipment Action# Pressure Duration Attributes Used 11:53:05 Inflate Prox CX EUPHORA 2.0 x 1 11 00:00 balloon 15 Balloon ([id number]) 11:53:38 Reinflate Prox CX EUPHORA 2.0 x 2 11 00:00 balloon 15 Balloon ([id number]) 12:00:12 Place stent LMCA LUCIO OTW 3.0 1 12 00:00 x 18 stent ([id number]) 12:03:18 Reinflate LMCA LUCIO OTW 3.0 2 4 00:00 stent x 18 stent balloon ([id number]) Device Usage Item Name Manufacture Quantity Catalog Hospital Part Current Mini mal Lot# / Number Charge Number Stock Stock Serial# Code ACIST Syringe Acist 1 55355 448583 441186 101591 20 (06993) Medical Systems MarketArt Bag Decanter Microtek 1 2001S 957370 75845 812565 5 (2001S) Medical Inc. ACIST Hand Acist 1 44226 626411 355352 290116 5 Control Medical (08638) Systems Inc ACIST Acist 1 12922 181499 668367 064518 5 Manifold Medical (03730) Systems Inc Tegaderm 4 x 3M 1 1626W 677514 327244 405107 5 4 (1626W) Medline Cath Medline 1 [id number] 633195 80939 664061 5 Pack ([id number]) DIAGNOSTIC Cardinal 1 SU0828 797746 26323 380024 30 Multipack 5Fr Health catheter set (IS9374) SHEATH 5FR Terumo 1 FQI533 217721 038688 789091 5 [place] (MZH648) EMERALD Guide Cardinal 1 502-455 638353 348961 609324 5 Wire Health (502-455) MULTIPACK JL Cardinal 1 974066 5 4.0 5Fr Health catheter MULTIPACK Cardinal 1 313640 5 3DRC 5Fr Health catheter DIAGNOSTIC IM Cardinal 1 [id number] 984817 304903 890563 5 5Fr catheter Health (324826A) MULTIPACK Cardinal 1 725948 5 Pigtail 5 Fr Health catheter [place] 1 5105174 183101 94031 9972 5 OmniWire (36855) INFLATOR Merit 1 JL2546 318768 848195 329763 15 AutoShag BasixCompak (HX1813) TUBING High Merit 1 [id number] 988226 88111 190784 10 Pressure Medical Extension Tubing (Vela) (JH0650Z) GUIDE 6FR Cardinal 1 58056160 694940 484929 888649 10 XBLAD 3.5 Health catheter (58069202) SHEATH 6FR Terumo 2 HJS192 042928 737567 526653 40 [place] (HUC492) GUIDE 6FR Cardinal 1 91835113 495961 261639 978091 3 XBLAD 3.5 SH Health catheter (42754097) BMW 300cm [place] 1 5718794 101950 453128 939588 5 Straight Vascular [place] 2 wire (9343492) 5Fr J Tip De La Garza 1 [id number] 180496 65348 011705 2 Temporary Lifesciences Pacing Catheter ([id number]) EUPHORA 2.0 x Medtronic 1 [id number] 005325 983927 510801 5 [id number] 15 Balloon ([id number]) LUCIO OTW 3.0 Medtronic 1 [id number] 439515 1953355 747827 5 [id number] x 18 stent ([id number]) EXOSEAL 6Fr Cardinal 1 EX600 692740 519899 564650 10 (EX600) Health Signature Audit [place] Stage Time Signature Unsigned Intra-Procedure 09/30/2020 Maki Vanessa 12:45:04 PM RT(R) Intra-Procedure 09/30/2020 Tony Vicente RN 12:46:01 PM Intra-Procedure 09/30/2020 Bruce Vela MD 12:46:55 PM Signatures Performing Physician : Bruce Signature : Dane ALEJANDRO Date : Time : Monitor : Maki Vanessa RT Signature : Date : Time : Nurse : Tony Lorigan RN Signature : Date : Time : [place] [address] [place] [address]
[~2020-09-30 08:22] MED LIST changes: +ACETAMINOPHEN325 MG PO; +TRAZODONE HCL50 MG PO
[2020-09-30 09:20] LABS: BASOPHILS 0.5 % (0-2); EOSINOPHILS 2.7 % (0-7); HEMATOCRIT 40.6 % (36.0-48.0); HEMOGLOBIN 13.4 g/dL (12-16); IMMATURE GRANULOCYTES 0.3 % (0-5); LYMPHOCYTES 32.1 % (15-50); MCV 90.8 fL (80.0-100.0); NEUTROPHIL ABS# 4.39 10x3/uL (1.56-6.13); NEUTROPHILS 56.4 % (40-80); PLATELET COUNT 257 10x3/uL (130-400); RBC 4.47 10x6/uL (4.00-5.40); RDW 13.8 % (11.5-14.5); WBC 7.8 10x3/uL (4.8-10.8)
[2020-09-30 09:28] LABS: INR 1.5 (0.85-1.17); PROTIME 16.8 SECONDS (11.6-15.0)
[2020-09-30 09:36] LABS: ALT (SGPT) 22 U/L (10-68); CALC OSMOLALITY 279 mosm/kg (275-300); CALCIUM 8.8 mg/dL (8.5-10.1); CARBON DIOXIDE 27.1 mmol/L (21.0-32.0); CHLORIDE - SERUM 104 mmol/L (98-107); CHOL - HDL RATIO 7.3 ratio (2.3-4.1); CHOLESTEROL, TOTAL 315 mg/dL (0-200); CREATININE - SERUM 1.1 mg/dL (0.6-1.3); GLUCOSE 104 mg/dL (74-106); HDL CHOLESTEROL 43 mg/dL (32-96); POTASSIUM - SERUM 3.7 mmol/L (3.5-5.1); SODIUM 140 mmol/L (136-145); UREA NITROGEN 16 mg/dL (7-18); eGFR NON AFRICAN AMERICAN 51 mL/min (90-120)
[2020-09-30 09:38] LABS: TRIGLYCERIDE 507 mg/dL (30-200)
--- NOTE | 2020-09-30 13:30 | NUR ---
PT RECEIVED. VSS UPON ARRIVAL. DR ABDULLAHI CONSULTED. FAMILY AT BEDSIDE. R AC PIV ADM. OGT ADM WITHOUT DIFFICULTY. CXR ORDERED REVIEWED. 1515 DR WHITE AT BEDSIDE GIVEN UDPATE NEW ORDERS RECEIVED. 1545 DR BADULLAHI AT BEDSIDE GIVEN UDPATE NO NEW ORDERS AT THIS TIME. 1640 VENT ALARMING ORAL ENDOTRACH CARE ADM. PT FOLLOWING COMMANDS.
[2020-09-30 17:19] LABS: HEMATOCRIT 43.9 % (36.0-48.0); HEMOGLOBIN 14.6 g/dL (12-16); LYMPHOCYTE ABS# 1.54 10x3/uL (1.18-3.74); MCHC 33.3 g/dL (31.0-37.0); MCV 90.1 fL (80.0-100.0); NEUTROPHIL ABS# 22.25 10x3/uL (1.56-6.13); PLATELET COUNT 344 10x3/uL (130-400); RBC 4.87 10x6/uL (4.00-5.40); WBC 26.2 10x3/uL (4.8-10.8)
[2020-09-30 17:28] LABS: ALBUMIN 3.5 g/dL (3.4-5.0); BILIRUBIN - TOTAL 0.44 mg/dL (0.2-1.3); CALCIUM 8.3 mg/dL (8.5-10.1); POTASSIUM - SERUM 3.6 mmol/L (3.5-5.1); PROTEIN - SERUM 6.8 g/dL (6.4-8.2)
[2020-09-30 17:33] LABS: CARBON DIOXIDE 19.6 mmol/L (21.0-32.0); CREATININE - SERUM 1.4 mg/dL (0.6-1.3)
[2020-09-30 17:37] LABS: LYMPHOCYTES 1 % (15-50); MONOCYTES 5 % (2-11); NEUTROPHILS 91 % (40-80)
[2020-09-30 17:40] LABS: PLATELET ESTIMATE NORMAL
--- NOTE | 2020-09-30 22:00 | NUR ---
RECEIVED PHONE CALL FROM GRANDDAUGHTER LEANN , [place] VERIFIED. UPDATE GIVEN AND QUESTIONS ANSWERED. PHONE NUMBER([phone]). PATIENTS OLDEST DAUGHTER JEMIMA PARADA #[phone]
[2020-10-01] VITALS (24 sets, daily range): BP systolic 127–181; BP diastolic 67–96; Ht 171.4 cm; Wt 72.4 kg
[2020-10-01 00:29] LABS: APTT 29.4 SECONDS (22.8-39.4); INR 1.45 (0.85-1.17); PROTIME 16.3 SECONDS (11.6-15.0)
[2020-10-01 04:29] LABS: BASOPHILS 0.1 % (0-2); EOSINOPHILS 0 % (0-7); HEMATOCRIT 36.4 % (36.0-48.0); HEMOGLOBIN 12.2 g/dL (12-16); IMMATURE GRANULOCYTES 0.3 % (0-5); LYMPHOCYTE ABS# 1.65 10x3/uL (1.18-3.74); LYMPHOCYTES 10.5 % (15-50); MCH 29.4 pg (26.0-34.0); MCHC 33.5 g/dL (31.0-37.0); MCV 87.7 fL (80.0-100.0); MONOCYTES 4.5 % (2-11); NEUTROPHIL ABS# 13.33 10x3/uL (1.56-6.13); NEUTROPHILS 84.6 % (40-80); PLATELET COUNT 314 10x3/uL (130-400); RBC 4.15 10x6/uL (4.00-5.40); RDW 14.2 % (11.5-14.5); WBC 15.8 10x3/uL (4.8-10.8)
[2020-10-01 05:07] LABS: ANION GAP 17.8 mmol/L (8-16); BILIRUBIN - TOTAL 0.44 mg/dL (0.2-1.3); CALCIUM 8.1 mg/dL (8.5-10.1); CARBON DIOXIDE 20.9 mmol/L (21.0-32.0); CREATININE - SERUM 1.4 mg/dL (0.6-1.3); MAGNESIUM - SERUM 1.6 mg/dL (1.8-2.4); PHOSPHOROUS 4.1 mg/dL (2.5-4.9); POTASSIUM - SERUM 3.7 mmol/L (3.5-5.1); PROTEIN - SERUM 6.3 g/dL (6.4-8.2)
[2020-10-01 05:10] LABS: TROPONIN-I 7.241 ng/mL (0.000-0.060)
--- NOTE | 2020-10-01 08:55 | NUR ---
SPOKE WITH PTS SON AT THIS TIME. HE STATES HE IS PTS EMERGENCY CONTACT. HE HAS AGREED TO BE THE FAMILY SPOKESPERSON. PT LYING IN IN BED ON VENT. VSS. NO ACUTE DISTRESS NOTED. PT TURNED Q2H, ORAL CARE PROVIDED Q2H. WILL CONTINUE PLAN OF CARE.
--- NOTE | 2020-10-01 12:34 | NUR ---
WILL START TUBE FEEDS WHEN RECIEVE FROM DIETARY.
--- NOTE | 2020-10-01 14:11 | NUR ---
LYING IN BED ON VENT AT THIS TIME. VSS. NO ACUTE DISTRESS NOTED. TURNED Q2H, ORAL CARE PROVIDED Q2H. TOLERATING CPAP TRIALS WELL. WILL CONTINUE PLAN OF CARE.
--- NOTE | 2020-10-01 14:42 | NUR ---
PS TRIAL [id number]. TRIAL STOPPED DUE TO INCREASE RR/HR AND WOB
--- NOTE | 2020-10-01 14:54 | NUR ---
OGT FEEDS STARTED AT THIS TIME PER PHYSICIAN ORDER. PLACEMENT VERIFIED VIA AUSCULTATION.
--- NOTE | 2020-10-01 20:00 | NUR ---
PT REC'D RESTING ON VENT VIA 8.5 ETT TUBE SEE FLOWSHEET FOR VENT SETTINGS, PT AWAKENS TO VERBAL STIMULI, FOLLOWS COMMANDS AND NODS APPROPRIATELY TO QUESTIONS, PIVS INTACT WITHOUT REDNESS OR EDEMA, DIPRIVAN INFUSING @ 35MCG/KG/MIN VIA LEFT FOREARM, RIGHT FOREARM WITH NS @ 30CC/HR, RIGHT GROIN SHEATH WITH HEPARIN @ 700 UNITS/HR, RIGHT GROIN CDI,SOFT, NO BLEEDING OR HEMATOMA NOTED, PT MAEE, PUREWICK INTACT WITH RENALDO COLORED URINE, SCDS INTACT, BILAT SOFT WRIST RESTRAINTS INTACT, BED IN LOW POSITION, VISIBLE TO NURSES STATION.
[2020-10-02] VITALS (24 sets, daily range): BP systolic 113–182; BP diastolic 55–95
[2020-10-02 06:46] LABS: ALBUMIN 2.9 g/dL (3.4-5.0); ANION GAP 20.3 mmol/L (8-16); BILIRUBIN - TOTAL 0.49 mg/dL (0.2-1.3); CALCIUM 7.8 mg/dL (8.5-10.1); CARBON DIOXIDE 20.7 mmol/L (21.0-32.0); PROTEIN - SERUM 5.8 g/dL (6.4-8.2)
[2020-10-02 07:01] LABS: BASOPHILS 0.1 % (0-2); EOSINOPHILS 0.4 % (0-7); HEMOGLOBIN 10.8 g/dL (12-16); IMMATURE GRANULOCYTES 0.4 % (0-5); LYMPHOCYTE ABS# 2.45 10x3/uL (1.18-3.74); LYMPHOCYTES 18.1 % (15-50); MCH 29.6 pg (26.0-34.0); MCHC 32.7 g/dL (31.0-37.0); MEAN PLATELET VOLUME 12.4 fL (7.4-10.4); MONOCYTES 6.2 % (2-11); NEUTROPHIL ABS# 10.15 10x3/uL (1.56-6.13); NEUTROPHILS 74.8 % (40-80); RBC 3.65 10x6/uL (4.00-5.40); RDW 14.5 % (11.5-14.5); WBC 13.6 10x3/uL (4.8-10.8)
[2020-10-02 07:03] LABS: MCV 90.4 fL (80.0-100.0); PLATELET COUNT 220 10x3/uL (130-400)
--- NOTE | 2020-10-02 09:38 | NUR ---
PT LYING IN BED ON VENT AT THIS TIME. NO ACUTE DISTRESS NOTED. JASE, FRIEND, IS AT BEDSIDE VISITING WITH PT. SHE IS OPENING HER EYES WHEN SPOKEN TO AND FOLLOWS COMMANDS. WILL CONTINUE PLAN OF CARE.
--- NOTE | 2020-10-02 10:46 | NUR ---
DR GOYAL ROUNDED ON PT AT THIS TIME, NOTIFIED PHYSICIAN THAT PT HAS HAD SOME HTN THIS MORNINIG TRENDING 120-180 AND HOLDING 180S SBP IN THE LAST 2 HOURS. ORDER RECIEVED TO START METOPROLOL 25MG QD. HE ALSO GAVE ORDERS TO DC SHEATH AND START HEPARIN GTT VIA PERIPHEAL IV. PER DR ABDULLAHI, WILL WAIT UNTIL AFTER CPAP TRIAL BEFORE REMOIVING SHEATH. WILL CONTINUE PLAN OF CARE.
[2020-10-02 12:20] LABS: MAGNESIUM - SERUM 2.2 mg/dL (1.8-2.4); PHOSPHOROUS 2.4 mg/dL (2.5-4.9)
--- NOTE | 2020-10-02 12:50 | NUR ---
EXTIBATED AT THIS TIME PER DR ABDULLAHI ORDERS. SHE IS NOW ON 4LNC. NO ACUTE DISTRESS NOTED. FAMILY HAVE BEEN UPDATED AND ARE HERE AT BEDSIDE TO SEE HER. VSS. WILL CONTINUE PLAN OF CARE.
--- NOTE | 2020-10-02 14:27 | NUR ---
SHEATH TO RT GROIN DCD AT THIS TIME PER CARIOLOGY ORDERS, TIP INTACT. PRESSURE DRESSING, BETADINE, AND 4X4 APPLIED TO SITE; PRESSURE HELD FOR 5 MIN AFTER 1 SUITURE WAS DCD. NO S/S BLEEDING, DRAINAGE, EDEMA, REDNESS. ALSO AT THIS TIME PTS PUREWICK HAD REPOSITIONED AND THEREFORE NO LONGER IN PLACE, WHEN PT URINATED, IT LEAKED ONTO THE BED. CHG BATH PROVIDED WITH ELDA CARE. NEW PURE WICK PROVIDED AND IS IN CORRECT POSITIONING. PT TURNED AND SHE STATES SHE IS COMFORTABLE. NO ACUTE DISTRESS NOTED. [facility]. VSS. WILL CONTINUE PLAN OF CARE.
--- NOTE | 2020-10-02 18:19 | NUR ---
PT REQUESTED TO SIT ON SIDE OF BED. SHE WAS ASSISTED TO DO THIS X 2 NURSES. SHE WAS ABLE TO SIT UP ON HER OWN. SHE SAT ON SIDE OF BED FOR ABOUT 5 MIN BEFORE ASKING TO LAY BACK DOWN. REPOSITIONIONG ASSIST PROVIDED. PT LYING IN BED AT THIS TIME WIHT PERSONAL ITEMS IN REACH. DENIES ANY NEEDS. WILL CONTINUE PLAN OF CARE.
[2020-10-03] VITALS (24 sets, daily range): BP systolic 105–174; BP diastolic 54–92
[2020-10-03 04:33] LABS: BASOPHILS 0.3 % (0-2); EOSINOPHILS 2.5 % (0-7); HEMATOCRIT 35.6 % (36.0-48.0); HEMOGLOBIN 11.4 g/dL (12-16); IMMATURE GRANULOCYTES 0.4 % (0-5); LYMPHOCYTE ABS# 2.59 10x3/uL (1.18-3.74); LYMPHOCYTES 22.7 % (15-50); MCH 29.5 pg (26.0-34.0); MCV 92.2 fL (80.0-100.0); MEAN PLATELET VOLUME 11.4 fL (7.4-10.4); NEUTROPHIL ABS# 7.78 10x3/uL (1.56-6.13); NEUTROPHILS 68.1 % (40-80); PLATELET COUNT 243 10x3/uL (130-400); RBC 3.86 10x6/uL (4.00-5.40); RDW 14.4 % (11.5-14.5); WBC 11.4 10x3/uL (4.8-10.8)
[2020-10-03 04:59] LABS: ANION GAP 13.4 mmol/L (8-16); CALCIUM 8.7 mg/dL (8.5-10.1); CREATININE - SERUM 0.9 mg/dL (0.6-1.3); MAGNESIUM - SERUM 2.2 mg/dL (1.8-2.4); PHOSPHOROUS 2.9 mg/dL (2.5-4.9); POTASSIUM - SERUM 3.5 mmol/L (3.5-5.1)
[2020-10-03 05:02] LABS: CARBON DIOXIDE 26.1 mmol/L (21.0-32.0)
--- NOTE | 2020-10-03 07:00 | NUR ---
REPORT RECEIVED. ASSESSMENT COMPLETE PER FLOW SHEET. VSS. ASSISTED TO BEDSIDE COMMODE. 250CC RENALDO URINE NOTED.
--- NOTE | 2020-10-03 09:20 | NUR ---
PT REFUSED TO EAT BREAKFAST.
--- NOTE | 2020-10-03 10:20 | NUR ---
Nutrition Reassessment/Follow-up: Extubated yesterday. Sitting up in bed with breakfast tray at time of visit this AM. Denies N/V, chewing/swallowing difficulties. Diet: Cardiac Wt: 159# (10/03); 159.6# (09/30) Labs reviewed Meds noted: Protonix, Florajen, electrolyte protocol Est needs: 4867-0697 kcal/day (25-30 kcal/kg actual BW) 60-70 g protein/day (0.8-1 g/kg actual BW) 5614-2331 mL fluid/day (1 mL/kcal) or per MD -Encourage PO intake and honor food preferences within diet restrictions. -RD follow-up: 10/05
--- NOTE | 2020-10-03 10:40 | NUR ---
JASE AT BEDSIDE GIVEN UPDATE.
--- NOTE | 2020-10-03 11:00 | NUR ---
REASSESSMENT COMPLETE PER FLOW SHEET. VSS. PT MINIMALLY ASSISTED UP OOB TO CHAIR. DENIES FRTHER NEEDS
--- NOTE | 2020-10-03 12:19 | NUR ---
ASSISTED OOC TO BEDSIDE COMMODE. LARGE LIQUID BM NOTED
[2020-10-04] VITALS (13 sets, daily range): BP systolic 106–184; BP diastolic 54–111
--- NOTE | 2020-10-04 02:05 | NUR ---
DR. CHRISTOPHER SOTO FOR ELEVATED BP
--- NOTE | 2020-10-04 02:10 | NUR ---
DR. WHITE RETURNED PAGE. ORDERS GIVEN, SEE MAR FOR ONE TIME MED ORDER
--- NOTE | 2020-10-04 02:40 | NUR ---
R PIV BLEEDING, IV REMOVED PRESSURE HELD FOR 25 MINS DUE TO IV SITE SLOW TO CLOT. PRESSURE DRESSING APPLIED WITH 2 2X2S AND COBAN. BLEEDING STOPPED
[2020-10-04 04:56] LABS: BASOPHILS 0.2 % (0-2); EOSINOPHILS 3.7 % (0-7); HEMATOCRIT 32.5 % (36.0-48.0); HEMOGLOBIN 10.4 g/dL (12-16); IMMATURE GRANULOCYTES 0.5 % (0-5); LYMPHOCYTE ABS# 2.16 10x3/uL (1.18-3.74); LYMPHOCYTES 26.4 % (15-50); MCH 29.4 pg (26.0-34.0); MCV 91.8 fL (80.0-100.0); MONOCYTES 6.7 % (2-11); NEUTROPHIL ABS# 5.12 10x3/uL (1.56-6.13); NEUTROPHILS 62.5 % (40-80); PLATELET COUNT 248 10x3/uL (130-400); RBC 3.54 10x6/uL (4.00-5.40); RDW 13.8 % (11.5-14.5)
[2020-10-04 05:10] LABS: ANION GAP 11.9 mmol/L (8-16); CALCIUM 8.3 mg/dL (8.5-10.1); CARBON DIOXIDE 28.4 mmol/L (21.0-32.0); POTASSIUM - SERUM 3.3 mmol/L (3.5-5.1)
[2020-10-04 05:17] LABS: WBC 8.2 10x3/uL (4.8-10.8)
[2020-10-04 13:03] LABS: INR 1.06 (0.85-1.17); PROTIME 12.8 SECONDS (11.6-15.0)
--- NOTE | 2020-10-04 14:36 | NUR ---
PT RECEIVED AWAKE AND ALERT FROM ICU VIA WHEELCHAIR. HEPARIN GTT INFUSING AT 10 ML/HR. SIGNIFICANT OTHER IN ROOM USING POWER WHEELCHAIR. PT TO BATHROOM ON ARRIVAL.
--- NOTE | 2020-10-04 15:27 | PN ---
PATIENT:HEATHER KELLY MEDICAL RECORD: [id number] LOCATION:D.[facility] ADMISSION DATE: 09/30/20 PROGRESS NOTE DATE OF SERVICE: 10/02/2020 SUBJECTIVE: The patient remained intubated and lying comfortable, alert and responsive. OBJECTIVE: VITAL SIGNS: Blood pressure 150s to 160s over 80s to 90s, pulse 90 (regular). HEENT: Significant for ventilatory support. HEART: Regular rhythm and rate with a mechanical aortic click. LUNGS: Breath sounds clear bilaterally. ABDOMEN: Benign. EXTREMITIES: Pneumatic compressions bilaterally. NEUROLOGIC: The patient is alert and responsive. ASSESSMENT: 1. Status post PCI/stent of circumflex. 2. History of mechanical aortic valve. 3. Respiratory failure -- weaning off ventilatory support. PLAN: Continue current medical management at this time with addition of metoprolol 25 mg p.o. daily. Once the patient is extubated, I recommend to resume Coumadin therapy at that time and other cardiac medications as clinically indicated. The patient is also scheduled for echocardiogram in the morning to assess LV function and valvular status. TRANSINT:[id number] Voice Confirmation ID: [id number] DOCUMENT ID: [id number] CLIFFORD GOYAL MD at 1527 CC: [id number] DICTATION DATE: 10/02/20 1036 TUFTER OPERATOR: 10/02/20 1800 ADM IN [place] [id number] [place] [address]
[2020-10-05] VITALS: BP 173/70
--- NOTE | 2020-10-05 01:44 | NUR ---
8920--PT CONTINUES TO C/O SEVERE PAIN TO CHEST/BACK POST CODE. SITTING UP IN RECLINER IN ROOM D/T NOT COMFORTABLE BEING IN BED. PLEASANT & COOPERATIVE. 0130-PAGED CARDIOLOGY TO GET A STRONGER PAIN MEDICATION. SPOKE WITH ERIC, NEW ORDER FOR NORCO 5/325MG 1TAB PO Q4HR PRN PAIN.
[2020-10-05 04:00] VITALS: BP 138/71
[2020-10-05 06:37] LABS: INR 1.15 (0.85-1.17); PROTIME 13.6 SECONDS (11.6-15.0)
[2020-10-05 06:38] LABS: APTT 80.3 SECONDS (22.8-39.4)
--- NOTE | 2020-10-05 07:15 | NUR ---
RECEIVE SHIFT REPORT. DENIES ANY NEEDS AT THIS TIME. RESTING IN BED, AROUSES TO VOICE. DENIES ANY NEEDS AT THIS TIME. WILL CONTINUE POC AND SAFETY PRECAUTIONS.
[2020-10-05 08:17] VITALS: BP 142/74
[2020-10-05 11:40] VITALS: BP 136/64
--- NOTE | 2020-10-05 14:06 | NUR ---
Nutrition Reassessment/Follow-up: Pt reports poor appetite but states that this is not unusual; reports eating <50% of her breakfast this AM. Denies N/V/C/D, chewing/swallowing difficulties. Agreed to Ensure (strawberry) with meals. Diet: Cardiac No new wt; last wt: 159# (10/03) Last BM: 10/04 Labs noted (10/04): Ca 8.3, K+ 3.3 Meds noted: Florajen, Protonix, Coumadin, electrolyte protocol -Nutrition needs unchanged; no new wt available. -Encourage PO intake and honor food preferences within diet restrictions. -+Ensure with meals. -Need new wt. -RD will follow up within 5 days.
[2020-10-05 20:00] VITALS: BP 136/66
[2020-10-06] VITALS: BP 109/64
--- NOTE | 2020-10-06 01:33 | NUR ---
1930- SITING UP IN BED. PLEASANT & COOPERATIVE. DENIES ANY NEEDS AT PRESENT.
[2020-10-06 04:00] VITALS: BP 127/68
--- NOTE | 2020-10-06 05:58 | NUR ---
PT RESTING IN BED. CONTINUES TO C/O SIGNIFICANT PAIN TO CHEST/RIBS/BACK D/T CPR. MEDICATED W/ HYDROCODONE NEEDED. STATES THAT SHE IS READY TO BE BACK TO HER NORMAL. HEPARIN CONTINUES TO INFUSE AT 10ML/HR. UP AD GENNY IN ROOM PLEASANT & COOPERATIVE
[2020-10-06 06:39] LABS: INR 1.76 (0.85-1.17)
[2020-10-06 06:42] LABS: APTT 146.2 SECONDS (22.8-39.4)
--- NOTE | 2020-10-06 07:13 | NUR ---
RECEIVE SHIFT REPORT. RESTING IN BED. DENIES ANY NEEDS AT THIS TIME. STATES SHE IS READY TO GO HOME. STILL ON HEPARIN DRIP. CALL LIGHT IN REACH. WILL CONTINUE POC AND SAFETY PRECAUTIONS.
[2020-10-06 08:09] VITALS: BP 144/75
--- NOTE | 2020-10-06 08:10 | NUR ---
WALKED IN ROOM TO PATIENT IV TUBING IN HALF AND IV PULLED OUT OF ARM. NO CARDIZEM INFUSING. PATIENT STATES HE TURNED IV PUMP OFF IN MIDDLE OF THE NIGHT. INSTRUCTED HIM THAT HE CAN NOT DO THAT HE NEEDS THAT MEDICATION. PATIENT GROGGY AND RESTLESS. TALKING IN HIS SLEEP, TOSSING AND TURNING. KEEPS FALLING ASLEEP MID SENTENCE. SPOKE WITH MYRANDA JACOME, I BELIEVE THIS IS FROM THE AMBIEN TAKEN LASTNIGHT. PATIENT WAS NOT THIS WAY WHEN ADMITTED YESTERDAY.
--- NOTE | 2020-10-06 10:28 | NUR ---
ROXANN RN INSERTED 20 GUAGE IV IN LEFT AC. PATIENT TOSSING AND TURNING AND PULLED IV OUT. TALKED WITH ERIC AND MYRANDA ABOUT NOT HAVING IV AND UNABLE TO START AMIODARONE DRIP ORDERED.
[2020-10-06 12:00] VITALS: BP 141/60
--- NOTE | 2020-10-06 12:02 | NUR ---
ER NURSE HERE WITH ULTRASOUND MACHINE TO TRY FOR IV.
[2020-10-06 16:12] VITALS: BP 119/48
[2020-10-06 22:11] VITALS: BP 132/78
--- NOTE | 2020-10-07 01:00 | NUR ---
PT AWAKE IN BED. ASSISTED TO BATHROOM AND BACK TO BED. PT COMPLAINS ABOUT ROOM BEING TOO SMALL AND WANTING TO GO HOME. PT IS AAOX4 WITH C/O CHEST PAIN FROM COUGH. PT WAS GIVEN PAIN MEDICATION BEFORE BED PER HER REQUEST. PT STATES SHE ONLY WANTS TO TAKE PAIN MEDICATION AT BEDTIME. PT GIVEN AN EXTRA PILLOW TO HUG WHILE COUGHING WHICH SHE REPORTED HELPED. PT ON ROOM AIR, IV INTACT WITH HEPARIN @ 8ML/HR. VITALS WNL.
[2020-10-07 02:11] VITALS: BP 125/74
[2020-10-07 05:25] VITALS: BP 153/72
[2020-10-07 06:55] LABS: INR 1.75 (0.85-1.17); PROTIME 18.9 SECONDS (11.6-15.0)
[2020-10-07 07:05] LABS: APTT 60.8 SECONDS (22.8-39.4)
--- NOTE | 2020-10-07 07:13 | NUR ---
RECEIVE SHIFT REPORT. SITTING UP IN CHAIR. STATES SHE FEELS WEAKER TODAY, WILL TRY TO GET UP WALKING AROUND HALLWAY TODAY. WALKED ONCE YESTERDAY AND SAT IN CHAIR MOST OF DAY. DENIES ANY OTHER NEEDS AT THIS TIME. WILL CHECK LABS AND ADJUST HEPARIN DOSE. CONTINUE POC AND SAFETY PRECAUTIONS.
[2020-10-07 09:10] VITALS: BP 134/85
[2020-10-07 12:59] VITALS: BP 114/47
--- NOTE | 2020-10-07 15:09 | NUR ---
TALKED WITH DR. CHRISTOPHER LAZARO TO GIVE 5MG COUMADIN.
[2020-10-07 16:43] VITALS: BP 119/66
[2020-10-07 21:18] VITALS: BP 132/55
[2020-10-08 03:25] VITALS: BP 136/76
[2020-10-08 06:49] LABS: INR 2.81 (0.85-1.17); PROTIME 27.5 SECONDS (11.6-15.0)
[2020-10-08 06:50] LABS: APTT 141.4 SECONDS (22.8-39.4)
--- NOTE | 2020-10-08 07:15 | NUR ---
RECEIVED REPORT. ASSUMED CARE OF PATIENT. PATIENT OOB TO RESTROOM. IV HEPARIN TURNED OFF AT THIS TIME PER HEPARIN PROTOCOL. ORDERS PLACED FOR PTT DRAW AT 1345, HEPARIN WILL BE RESTARTED AT 0745 AT A RATE OF 7ML/HR. PATIENT DENIES ANY NEEDS, STATES SHE THINKS SHE IS GOING HOME TODAY. WHITE BOARD UPDATED, BEDSIDE SHIFT REPORT COMPLETE. NO DISTRESS.
[2020-10-08 07:30] VITALS: BP 119/67
--- NOTE | 2020-10-08 07:45 | NUR ---
HEPARIN GTT NOW TURNED BACK ON AT A RATE OF 7ML/HR (7MG/HR). PATIENT SITTING TO CHAIR AT BEDSIDE WHILE HAVING PHONE CONVERSATION. NO DISTRESS. CALL LIGHT WITHIN REACH.
[2020-10-08 07:49] LABS: HEMATOCRIT 32.4 % (36.0-48.0); HEMOGLOBIN 10.5 g/dL (12-16); MCH 29.8 pg (26.0-34.0); MCHC 32.4 g/dL (31.0-37.0); MEAN PLATELET VOLUME 11.8 fL (7.4-10.4); RBC 3.52 10x6/uL (4.00-5.40); RDW 14.4 % (11.5-14.5); WBC 6.6 10x3/uL (4.8-10.8)
--- NOTE | 2020-10-08 09:20 | NUR ---
heparin drip off as order was discontinued at this time.
[2020-10-08 11:30] VITALS: BP 121/82
--- NOTE | 2020-10-08 14:13 | NUR ---
RESTING WELL IN BED WITH EYES CLOSED, EASILY AROUSED. NO DISTRESS. CALL LIGHT WITHIN REACH.
[2020-10-08 15:30] VITALS: BP 138/73
--- NOTE | 2020-10-08 18:33 | NUR ---
RESTING IN BED WITH EYES CLOSED, EASILY AROUSED. DENIES NEEDS. NO DISTRESS. CALL LIGHT PLACED WITHIN REACH.
[2020-10-08 20:30] VITALS: BP 127/65
[2020-10-09 00:30] VITALS: BP 109/64
[2020-10-09 04:30] VITALS: BP 138/63
--- NOTE | 2020-10-09 07:00 | NUR ---
RECEIVED REPORT. ASSUMED CARE OF PATIENT. PATIENT OOB TO CHAIR AT BEDSIDE. CALL LIGHT WITHIN REACH. RESP EVEN AND UNLABORED. PATIENT HOPING TO GO HOME TODAY. WHITE BOARD UPDATED, BEDSIDE SHIFT REPORT COMPLETE. PATIENT DENIES NEEDS AT THIS TIME. NO DISTRESS.
[2020-10-09 08:32] LABS: HEMATOCRIT 35.1 % (36.0-48.0); HEMOGLOBIN 11.3 g/dL (12-16); MCH 29.5 pg (26.0-34.0); MCHC 32.2 g/dL (31.0-37.0); MCV 91.6 fL (80.0-100.0); MEAN PLATELET VOLUME 10.9 fL (7.4-10.4); RBC 3.83 10x6/uL (4.00-5.40); RDW 14.3 % (11.5-14.5); WBC 7.5 10x3/uL (4.8-10.8)
[2020-10-09 08:43] VITALS: BP 112/70
[2020-10-09 08:50] LABS: INR 2.65 (0.85-1.17); PROTIME 26.3 SECONDS (11.6-15.0)
[2020-10-09 09:28] LABS: INR 2.68 (0.85-1.17); PROTIME 26.5 SECONDS (11.6-15.0)
--- NOTE | 2020-10-09 09:36 | NUR ---
DISCHARING PATIENT TO HOME, COUMADIN 7.5MG TODAY AND PATIENT MUST PRESENT TO CARDIOLOGY OFFICE TOMMOROW FOR PT/INR CHECK BEFORE PRESCRIPTION WILL BE PROVIDED.
[2020-10-09] MEDS ORDERED: PLAVIX75 MG PO (09:39)
--- NOTE | 2020-10-09 09:41 | NUR ---
20 GAUGE IV REMOVED FROM RIGHT FOREARM. CATHETER TIP INTACT. NO BLEEDING FROM SITE. 2X2 GAUZE APPLIED AND SECURED WITH BANDAID. PATIENT TOLERATED IV REMOVAL WELL.
--- NOTE | 2020-10-09 10:20 | NUR ---
PATIENT TELEMETRY RETURNED TO SOLAR FIELD SERVICE TECHNICIAN IN ICU.
--- NOTE | 2020-10-09 10:50 | NUR ---
PATIENT LEFT UNIT VIA WHEELCHAIR IN STABLE CONDITION WITH ALL PERSONAL BELONGINGS. PATIENT DISCHARGED TO HOME. 7.5 MG COUMADIN ADMINISTERED AT 1030 PER VERBAL ORDER AND PATEINT VERBALIZED UNDERSTANDING TO GO TO [facility] THE AM TO HAVE PT/INR CHECKED FOR FURTHER PRESCRIPTION ORDERS FOR HER COUMADIN. NO DISTRESS UPON LEAVING UNIT.
--- NOTE | 2020-10-09 13:50 | MORECARE ---
CASE MANAGEMENT DISCHARGE SUMMARY PATIENT: HEATHER KELLY UNIT: [id number] ADM DATE: 09/30/20 AGE: 75 : 45 SEX: F ROOM/BED: D.1816 AUTHOR: EDUARDO LOPEZ PHYSICIAN: REFERRING PHYSICIAN: KIANA WHITE M.D. DATE OF SERVICE: 10/09/20 Case Management Discharge Planning Summary COMMENTS ENTERED DATE: 10/01/20 17:06 CT COMMENT TYPE: Discharge Planning REVIEWER: Antonio Power FAMILY DISAGREEMENT. CM team conferenced with warehouse traffic supervisor regarding a patient family conflict. The patient's children are in dispute about shared access to the patient. More specifically, each child would like to limit or block the other from having decision making authority regarding their mother. The patient's children were informed by the Nautical Instrument Mechanic that neither child has a POA, so both have equal access to the patient and the ability to make decisions regarding their mother's care. CM will continue to follow and will assist as needed with dc plans/needs DCP REVIEW SUMMARY ANTICIPATED D/C DATE: 10/09/2020 EXPECTED LOS : 9 CASE STATUS: DCP Initiated INITIAL REVIEW: 09/30/2020 INITIAL REVIEWER: Antonio Poewr FINAL DISCHARGE DISPOSITION: : FINAL REVIEWER: FINAL REVIEW DATE: DCP Focus Questions & Answers DCP Evaluation QUESTION: ANSWER Patient and/or caregiver agree upon recommended discharge plan? : Yes Family / Caregiver's ability to cope with chronic illness: : a. Adequate (ability to meet patient's medical needs, ensures patient attends medical appts.) Patient's current cognitive status: : *Oriented to person, place, situation, time and present Patient's ability to cope with chronic illness : d. No chronic illness Patient gives permission to discuss discharge plans with: (name, relationship and number) : significant other, Juanito Wright, Does the patient have the ability to pay for or attain post discharge needs / services? : Yes Functional screen assessment: : Basic needs can adequately be met by self Family / Caregiver's ability to cope with chronic illness: : a. Adequate (ability to meet patient's medical needs, ensures patient attends medical appts.) Physical Status: : Independent with ADL's Equipment needed for post hospitalization: : None Is there a likelihood that the patient will require additional services to return to the preadmission environment? : No Living Arrangements: : Home with Spouse/Significant Other Patient with capacity for self-care or can be cared for in same environment as prior to hospitalization? : Yes Baseline cognitive status: : *Oriented to person, place, situation, time and present Physical environment modification needed / anticipated for discharge: : No Medication Management: : Patient states can read and understand medication labels Medication Management: : Patient states can afford medications Pharmacy name(s): : [facility] [address] Does Patient have transportation to get home and to follow-up medical appointments when discharged from the hospital? : Yes Would patient like to participate in any Care Coordination programs (if applicable): : Not applicable Does the patient have electricity at home? : Yes Does the patient have running water in their house? : Yes Equipment in use: : None Mental health screen: : No mental health history DCP Re-evaluation QUESTION: ANSWER Would patient like to participate in any Care Coordination programs (if applicable): : Not applicable PATIENT: HEATHER KELLY ENCOUNTER: [id number] MEDICAL RECORD#: [id number] ADMISSION DATE: 09/30/2020 DISCHARGE DATE: 10/09/2020 ATTENDING MD: KIANA RAMIREZ : AGE: 75 MARITAL STATUS: W DC PLAN ID: [id number] FACILITY: [facility] PRINTED ON: 10/09/20 13:50 CT All edits/amendments must be made on the electronic document DICTATION DATE: 10/09/20 135 SLITTER PROCESSED FILM: FIORELLA 10/09/20 135 RPT#: [id number] DC DATE:10/09/20 STATUS: DIS IN [address] [id number] END OF REPORT
--- NOTE | 2020-10-09 14:12 | MORECARE ---
CASE MANAGEMENT DISCHARGE SUMMARY PATIENT: HEATHER KELLY UNIT: [id number] ADM DATE: 09/30/20 AGE: 75 : 45 SEX: F ROOM/BED: D.6990 AUTHOR: JESSICA,DOC PHYSICIAN: REFERRING PHYSICIAN: KIANA WHITE M.D. DATE OF SERVICE: 10/09/20 Case Management Discharge Planning Summary COMMENTS ENTERED DATE: 10/09/20 14:04 CT COMMENT TYPE: Discharge Planning REVIEWER: Antonio Power HOME. CM met with patient to complete DC plan and to evaluate needs. Patient lives independently with her significant other, Juanito Wright, . Patient stated that her home is safe and has electricity and running water. Patient stated that the home has 4 steps to enter and she is able to manage the steps without difficulty. Patient stated that she has no problems paying for medications and she fills her medications at [facility] on [address]. Patient stated that her primary care physician is Dr. Guzman. At discharge, the patient plans to return home and feels this is a safe discharge. CM discussed availability of home health, rehab services, and medical equipment. Patient declined HHS, SNF, IPR, and DME. Patient stated they have no DME at home and does not require any. Patient voiced no other needs at this time and is satisfied with DC plan. Transportation provider at discharge will be with Juanito. DC IMM delivered, explained, signed by the patient, and placed in chart. Signed form also left with the patient. CM will continue to follow and will assist as needed with dc plans/needs. ENTERED DATE: 10/01/20 17:06 CT COMMENT TYPE: Discharge Planning REVIEWER: Antonio Power FAMILY DISAGREEMENT. CM team conferenced with warehouse production worker regarding a patient family conflict. The patient's children are in dispute about shared access to the patient. More specifically, each child would like to limit or block the other from having decision making authority regarding their mother. The patient's children were informed by the Site Reliability Engineer that neither child has a POA, so both have equal access to the patient and the ability to make decisions regarding their mother's care. CM will continue to follow and will assist as needed with dc plans/needs DCP REVIEW SUMMARY ANTICIPATED D/C DATE: 10/09/2020 EXPECTED LOS : 9 CASE STATUS: DCP Initiated INITIAL REVIEW: 09/30/2020 INITIAL REVIEWER: Antonio Power FINAL DISCHARGE DISPOSITION: : FINAL REVIEWER: FINAL REVIEW DATE: DCP Focus Questions & Answers DCP Evaluation QUESTION: ANSWER Family / Caregiver's ability to cope with chronic illness: : a. Adequate (ability to meet patient's medical needs, ensures patient attends medical appts.) Patient gives permission to discuss discharge plans with: (name, relationship and number) : significant other, Juanito Wright, Patient's ability to cope with chronic illness : d. No chronic illness Patient's current cognitive status: : *Oriented to person, place, situation, time and present Patient and/or caregiver agree upon recommended discharge plan? : Yes Physical Status: : Independent with ADL's Family / Caregiver's ability to cope with chronic illness: : a. Adequate (ability to meet patient's medical needs, ensures patient attends medical appts.) Functional screen assessment: : Basic needs can adequately be met by self Does the patient have the ability to pay for or attain post discharge needs / services? : Yes Living Arrangements: : Home with Spouse/Significant Other Is there a likelihood that the patient will require additional services to return to the preadmission environment? : No Equipment needed for post hospitalization: : None Baseline cognitive status: : *Oriented to person, place, situation, time and present Patient with capacity for self-care or can be cared for in same environment as prior to hospitalization? : Yes Physical environment modification needed / anticipated for discharge: : No Medication Management: : Patient states can afford medications Medication Management: : Patient states can read and understand medication labels Pharmacy name(s): : [facility] Does Patient have transportation to get home and to follow-up medical appointments when discharged from the hospital? : Yes Would patient like to participate in any Care Coordination programs (if applicable): : Not applicable Does the patient have electricity at home? : Yes Does the patient have running water in their house? : Yes Equipment in use: : None Mental health screen: : No mental health history DCP Re-evaluation QUESTION: ANSWER Would patient like to participate in any Care Coordination programs (if applicable): : Not applicable PATIENT: HEATHER KELLY ENCOUNTER: [id number] MEDICAL RECORD#: [id number] ADMISSION DATE: 09/30/2020 DISCHARGE DATE: 10/09/2020 ATTENDING MD: KIANA RAMIREZ : AGE: 75 MARITAL STATUS: W DC PLAN ID: [id number] FACILITY: [facility] PRINTED ON: 10/09/20 14:11 CT All edits/amendments must be made on the electronic document DICTATION DATE: 10/09/201410 PROCUREMENT ENGINEER: FIORELLA 10/09/20 141 RPT#: [id number] DC DATE:10/09/20 STATUS: DIS IN [facility] [address] [place] [address] END OF REPORT
--- NOTE | 2020-10-10 07:18 | MORECARE ---
CASE MANAGEMENT DISCHARGE SUMMARY PATIENT: HEATHER KELLY UNIT: [id number] ADM DATE: 09/30/20 AGE: 75 : 45 SEX: F ROOM/BED: D.6657 AUTHOR: JESSICA,DOC PHYSICIAN: REFERRING PHYSICIAN: KIANA WHITE M.D. DATE OF SERVICE: 10/10/20 Case Management Discharge Planning Summary COMMENTS ENTERED DATE: 10/09/20 14:04 CT COMMENT TYPE: Discharge Planning REVIEWER: [facility]. CM met with patient to complete DC plan and to evaluate needs. Patient lives independently with her significant other, Juanito Wright, . Patient stated that her home is safe and has electricity and running water. Patient stated that the home has 4 steps to enter and she is able to manage the steps without difficulty. Patient stated that she has no problems paying for medications and she fills her medications at [facility] on [address]. Patient stated that her primary care physician is Dr. Guzman. At discharge, the patient plans to return home and feels this is a safe discharge. CM discussed availability of home health, rehab services, and medical equipment. Patient declined HHS, SNF, IPR, and DME. Patient stated they have no DME at home and does not require any. Patient voiced no other needs at this time and is satisfied with DC plan. Transportation provider at discharge will be with Juanito. DC IMM delivered, explained, signed by the patient, and placed in chart. Signed form also left with the patient. CM will continue to follow and will assist as needed with dc plans/needs. ENTERED DATE: 10/01/20 17:06 CT COMMENT TYPE: Discharge Planning REVIEWER: [facility] FAMILY DISAGREEMENT. CM team conferenced with steffen house supervisor regarding a patient family conflict. The patient's children are in dispute about shared access to the patient. More specifically, each child would like to limit or block the other from having decision making authority regarding their mother. The patient's children were informed by the [employer] that neither child has a POA, so both have equal access to the patient and the ability to make decisions regarding their mother's care. CM will continue to follow and will assist as needed with dc plans/needs DCP REVIEW SUMMARY ANTICIPATED D/C DATE: 10/09/2020 EXPECTED LOS : 9 CASE STATUS: DCP Complete INITIAL REVIEW: 09/30/2020 INITIAL REVIEWER: [facility] FINAL DISCHARGE DISPOSITION: 01 : Home or Self Care (Routine Discharge) FINAL REVIEWER: [facility] FINAL REVIEW DATE: 10/10/2020 DCP Focus Questions & Answers DCP Evaluation QUESTION: ANSWER Patient and/or caregiver agree upon recommended discharge plan? : Yes Patient's current cognitive status: : *Oriented to person, place, situation, time and present Patient's ability to cope with chronic illness : d. No chronic illness Patient gives permission to discuss discharge plans with: (name, relationship and number) : significant other, Juanito Wright, Family / Caregiver's ability to cope with chronic illness: : a. Adequate (ability to meet patient's medical needs, ensures patient attends medical appts.) Does the patient have the ability to pay for or attain post discharge needs / services? : Yes Functional screen assessment: : Basic needs can adequately be met by self Family / Caregiver's ability to cope with chronic illness: : a. Adequate (ability to meet patient's medical needs, ensures patient attends medical appts.) Physical Status: : Independent with ADL's Equipment needed for post hospitalization: : None Is there a likelihood that the patient will require additional services to return to the preadmission environment? : No Living Arrangements: : Home with Spouse/Significant Other Patient with capacity for self-care or can be cared for in same environment as prior to hospitalization? : Yes Baseline cognitive status: : *Oriented to person, place, situation, time and present Physical environment modification needed / anticipated for discharge: : No Medication Management: : Patient states can read and understand medication labels Medication Management: : Patient states can afford medications Pharmacy name(s): : [facility] [place] Does Patient have transportation to get home and to follow-up medical appointments when discharged from the hospital? : Yes Would patient like to participate in any Care Coordination programs (if applicable): : Not applicable Does the patient have electricity at home? : Yes Does the patient have running water in their house? : Yes Equipment in use: : None Mental health screen: : No mental health history DCP Re-evaluation QUESTION: ANSWER Would patient like to participate in any Care Coordination programs (if applicable): : Not applicable PATIENT: HEATHER KELLY ENCOUNTER: [id number] MEDICAL RECORD#: [id number] ADMISSION DATE: 09/30/2020 DISCHARGE DATE: 10/09/2020 ATTENDING MD: KIANA RAMIREZ : AGE: 75 MARITAL STATUS: W DC PLAN ID: [id number] FACILITY: [facility] PRINTED ON: 10/10/20 7:18 CT All edits/amendments must be made on the electronic document DICTATION DATE: 10/10/20717 PUBLIC RELATIONS DIRECTOR: FIORELLA 10/10/20717 RPT#: [id number] DC DATE:10/09/20 STATUS: DIS IN [facility] [address] [place] [address] END OF REPORT
== END 2020-10-09 10:50 | disposition home or self-care (01) | DRG 246 ==
LOC: D.CATH 08:22 → D.ICU 08:22 → D.CATH 10:00 → D.ICU 13:05 → D.CATH 13:14 → D.M2 13:14 → D.ICU 10-04 10:09 → D.M2 10-04 14:33
PROVIDERS: Family Medicine Adult Medicine; Internal Medicine Pulmonary Disease; ADMIT Internal Medicine Cardiovascular Disease; ATTEND Internal Medicine Cardiovascular Disease
PROC: B31 Imaging, Upper Arteries, Fluoroscopy (ICD-10-PCS; 2020-09-30)
PROC: B2110ZZ Fluoroscopy of Multiple Coronary Arteries using High Osmolar Contrast (ICD-10-PCS; 2020-09-30)
PROC: B2150ZZ Fluoroscopy of Left Heart using High Osmolar Contrast (ICD-10-PCS; 2020-09-30)
PROC: 5A1223Z Performance of Cardiac Pacing, Continuous (ICD-10-PCS; 2020-09-30)
PROC: 0BH17EZ Insertion of Endotracheal Airway into Trachea, Via Natural or Artificial Opening (ICD-10-PCS; 2020-09-30)
PROC: 5A1945Z Respiratory Ventilation, 24-96 Consecutive Hours (ICD-10-PCS; 2020-09-30)
PROC: 027135Z Dilation of Coronary Artery, Two Arteries with Two Drug-eluting Intraluminal Devices, Percutaneous Approach (ICD-10-PCS; principal; 2020-09-30 10:00)
PROC: 4A033BC Measurement of Arterial Pressure, Coronary, Percutaneous Approach (ICD-10-PCS; 2020-09-30 10:00)
PROC: 4A023N7 Measurement of Cardiac Sampling and Pressure, Left Heart, Percutaneous Approach (ICD-10-PCS; 2020-09-30 10:00)
DX: I97.711 Intraoperative cardiac arrest during other surgery (principal); J96.01 Acute respiratory failure with hypoxia; J81.0 Acute pulmonary edema; J69.0 Pneumonitis due to inhalation of food and vomit; I25.10 Atherosclerotic heart disease of native coronary artery without angina pectoris; I95.9 Hypotension, unspecified; I27.20 Pulmonary hypertension, unspecified; E87.6 Hypokalemia; E78.5 Hyperlipidemia, unspecified; I08.1 Rheumatic disorders of both mitral and tricuspid valves; K57.90 Diverticulosis of intestine, part unspecified, without perforation or abscess without bleeding